=== PATIENT | female | born 1965 | race Caucasian/White ===

== ENCOUNTER 2016-09-04 14:19 | Emergency (ER) | payer OTHER ==
[2016-09-04 14:27] VITALS: BP 119/84
[2016-09-04] MEDS ORDERED: NAPROXEN 375 MG TABLET PO ONE (15:35)
--- NOTE | 2016-09-04 15:39 | ER Document Report ---
HPI - HPI Patient complains to provider of: chronic low back pain and anterior left hip pain Onset: Yesterday Onset/Duration: Gradual Quality of pain: Achy Pain Level: 4 Context: 51-year-old female complaining of exacerbation of her chronic intermittent low back pain. She also ran 2 days ago and developed left anterior hip pain while she ran which got worse yesterday. No saddle anesthesia or radiculopathy. No fever or chills. No IV drug use. Associated Symptoms: None Exacerbated by: Movement, Walking Relieved by: Denies Similar symptoms previously: Yes Recently seen / treated by doctor: No - ROS ROS below otherwise negative: Yes Systems Reviewed and Negative: Yes All other systems reviewed and negative - CARDIOVASCULAR Cardiovascular: DENIES: Chest pain - REPRODUCTIVE Reproductive: DENIES: : - DERM Skin Color: Normal Past Medical History - General Information source: Patient - Social History Smoking Status: Current Every Day Smoker Chew tobacco use (# tins/day): No Frequency of alcohol use: Occasional Drug Abuse: None Lives with: Family Family History: None Patient has suicidal ideation: No Patient has homicidal ideation: No - Past Medical History Cardiac Medical History: Reports: Hx Hypercholesterolemia, Hx Hypertension Neurological Medical History: Reports: Hx Cerebrovascular Accident - 2010 Endocrine Medical History: Reports: Hx Diabetes Mellitus Type 2 - border line Renal/ Medical History: Denies: Hx Peritoneal Dialysis Musculoskeltal Medical History: Reports Hx Arthritis - hips, back, knees Psychiatric Medical History: Reports: Hx Bipolar Disorder Past Surgical History: Reports: Hx Cholecystectomy, Hx Gynecologic Surgery - oopherectomy, Hx Orthopedic Surgery, Hx Tonsillectomy - 1983, Hx Tubal Ligation - Immunizations Immunizations up to date: No Hx Diphtheria, Pertussis, Tetanus Vaccination: No Vertical Provider Document - CONSTITUTIONAL Agree With Documented VS: Yes Exam Limitations: No Limitations - INFECTION CONTROL TRAVEL OUTSIDE OF THE [place] IN LAST 30 DAYS: No - HEENT HEENT: Normocephalic - NECK Neck: Supple - RESPIRATORY Respiratory: Breath Sounds Normal, No Respiratory Distress O2 Sat by Pulse Oximetry: 98 - CARDIOVASCULAR Cardiovascular: Regular Rate, Regular Rhythm - GI/ABDOMEN Gastrointestinal: Abdomen Soft, Abdomen Non-Tender - MUSCULOSKELETAL/EXTREMETIES Musculoskeletal/Extremeties: MAEW, FROM, Tender - anterior left thigh and thigh muscle anterior superior iliac spine insertion, no swelling or erythema - NEURO Level of Consciousness: Awake, Alert, Appropriate Motor/Sensory: No Motor Deficit, No Sensory Deficit Deep Tendon Reflexes: Absent - deepak patellar and ankle, unable to elicit, gait and strength are normal, sensation normal - DERM Integumentary: Warm, Dry, No Rash Course - Vital Signs Vital signs: Temp Pulse Resp BP Pulse Ox 98.6 F 93 18 119/84 98 09/04/16 14:26 09/04/16 14:26 09/04/16 14:26 09/04/16 14:26 09/04/16 14:26 Discharge - Discharge Clinical Impression: left groin muscle strain Low back pain Qualifiers: Chronicity: unspecified Back pain laterality: midline Sciatica presence: without sciatica Qualified Code(s): M54.5 - Low back pain Condition: Good Disposition: HOME, SELF-CARE Instructions: Low Back Pain ([facility]), Anti-Inflammatory Medication ([facility]), Muscle Strain ([facility]), Family Physicians / Practices, Warm Packs ([facility]) Additional Instructions: Warm compress Gentle stretching Naprosyn as anti-inflammatory medication Return to the emergency room any concerns Please complete the patient satisfaction survey if you get one, and return it.. If you do not receive a survey, then you can go to the [facility] website, [email or web address] and place your comments about your very good care. Thank you very much. It was a pleasure being your medical provider today. Prescriptions: Naproxen 500 mg PO BIDP PRN #30 tablet PRN Reason: Forms: Return to Work
== END 2016-09-04 15:44 | disposition home or self-care (01) ==
LOC: ER 14:19
DX: S39.011A Strain of muscle, fascia and tendon of abdomen, initial encounter (principal); M54.5 Low back pain; M25.552 Pain in left hip; G89.29 Other chronic pain; F17.200 Nicotine dependence, unspecified, uncomplicated; X58.XXXA Exposure to other specified factors, initial encounter
CPT/HCPCS: 99283; J3490

== ENCOUNTER 2016-09-10 14:37 | Emergency (ER) | payer OTHER ==
[2016-09-10] MEDS ORDERED: NORMAL SALINE 500 ML IV ONE (15:28)
[2016-09-10] MEDS ORDERED: KETOROLAC TROMETHAMINE INJ/PF 30 MG/1 ML SDV IV ONE (15:29)
[2016-09-10] MEDS ORDERED: ONDANSETRON HCL INJ/PF 4 MG/2 ML SDV IV ONE (15:29)
--- NOTE | 2016-09-10 15:47 | ER Document Report ---
ED Medical Screen (RME) - General Chief Complaint: Vomiting Stated Complaint: NAUSEA,VOMITING,BACK PAIN Notes: I briefly seen and evaluated this patient in my role as physician in triage. I have initiated orders based on this initial evaluation. Please see my colleague' s documentation for complete history, physical, management, diagnosis, and ultimate disposition. My brief evaluation: Patient presents stating that she started having vomiting and diarrhea yesterday. She says today she has low back pain. The patient indicates she is getting history of low back problems. She says she throws it out every once in a while. She reports that it is possible that she thrown out when she was vomiting but she does not know. She denies any fevers. No urinary frequency urgency dysuria or hematuria. On exam, patient is alert and oriented no acute distress vital signs are stable patient is afebrile nontoxic appearing. Abdomen soft and nontender. Patient has mild tenderness across the lumbar paravertebral region. Bowel sounds are present. Medical decision making: Will initiates symptomatically management of nausea and vomiting. Basic labs urine. TRAVEL OUTSIDE OF THE [place] IN LAST 30 DAYS: No - Related Data Allergies/Adverse Reactions: No Known Allergies Allergy (Verified 09/10/16 15:22) Past Medical History - Past Medical History Cardiac Medical History: Reports: Hx Hypercholesterolemia, Hx Hypertension Denies: Hx Congestive Heart Failure, Hx Coronary Artery Disease, Hx DVT, Hx Heart Attack Pulmonary Medical History: Denies: Hx Tuberculosis Neurological Medical History: Reports: Hx Cerebrovascular Accident - 2010 Endocrine Medical History: Reports: Hx Diabetes Mellitus Type 2 - border line Renal/ Medical History: Denies: Hx Peritoneal Dialysis Musculoskeltal Medical History: Reports Hx Arthritis - hips, back, knees Psychiatric Medical History: Reports: Hx Bipolar Disorder Past Surgical History: Reports: Hx Cholecystectomy, Hx Gynecologic Surgery - oopherectomy, Hx Orthopedic Surgery, Hx Tonsillectomy - 1983, Hx Tubal Ligation. Denies: Hx Pacemaker - Immunizations Immunizations up to date: No Hx Diphtheria, Pertussis, Tetanus Vaccination: No Physical Exam - Vital signs Vitals: Temp Pulse Resp BP Pulse Ox 98.8 F 97 18 130/93 H 100 09/10/16 14:42 09/10/16 14:42 09/10/16 14:42 09/10/16 14:42 09/10/16 14:42 Course - Vital Signs Vital signs: Temp Pulse Resp BP Pulse Ox 98.8 F 97 18 130/93 H 100 09/10/16 14:42 09/10/16 14:42 09/10/16 14:42 09/10/16 14:42 09/10/16 14:42
[2016-09-10 16:08] LABS: ABSOLUTE EOSINOPHILS # (AUTO) 0.1 10^3/uL (0.0-0.6); ABSOLUTE LYMPHOCYTES (AUTO) 2.8 10^3/uL (0.5-4.7); ABSOLUTE MONOCYTES (AUTO) 0.5 10^3/uL (0.1-1.4); ABSOLUTE NEUT (AUTO) 4.2 10^3/uL (1.7-8.2); BASOPHILS % (AUTO) 0.5 % (0-2); EOSINOPHILS % (AUTO) 0.7 % (0-6); HEMATOCRIT 40.1 % (36.0-47.0); HEMOGLOBIN 13.9 g/dL (12.0-15.5); HGB HCT DIFFERENCE 1.6; LYMPHOCYTES % (AUTO) 36.7 % (13-45); MEAN CORPUSCULAR HEMOGLOBIN 33.1 pg (27.0-33.4); MEAN CORPUSCULAR HGB CONC 34.7 g/dL (32.0-36.0); MEAN CORPUSCULAR VOLUME 95 fl (80-97); MONOCYTES % (AUTO) 6.1 % (3-13); RED BLOOD COUNT 4.21 10^6/uL (3.72-5.28); RED CELL DISTRIBUTION WIDTH 13.8 % (11.5-14.0); WHITE BLOOD COUNT 7.5 10^3/uL (4.0-10.5)
[2016-09-10 16:22] LABS: APPEARANCE,URINE CLOUDY; BILIRUBIN,URINE NEGATIVE (NEGATIVE); GLUCOSE, URINE >=500 mg/dL (NEGATIVE); KETONES,URINE NEGATIVE (NEGATIVE); LEUKOCYTE ESTERASE,URINE SMALL (NEGATIVE); NITRITE,URINE NEGATIVE (NEGATIVE); PROTEIN,URINE NEGATIVE (NEGATIVE); URINE SPECIFIC GRAVITY 1.012; UROBILINOGEN,URINE NEGATIVE mg/dL (<2.0)
[2016-09-10 16:26] LABS: ALANINE AMINOTRANSFERASE 57 U/L (9-52); ALBUMIN 4.4 g/dL (3.5-5.0); ALKALINE PHOSPHATASE 61 U/L (38-126); ANION GAP 14 (5-19); ASPARTATE AMINO TRANSFERASE 36 U/L (14-36); BILIRUBIN,DIRECT 0.3 mg/dL (0.0-0.4); BILIRUBIN,TOTAL 0.5 mg/dL (0.2-1.3); BLOOD UREA NITROGEN 14 mg/dL (7-20); CALCIUM 9.1 mg/dL (8.4-10.2); CARBON DIOXIDE 26 mmol/L (22-30); CHLORIDE 98 mmol/L (98-107); CREATININE RESULT 0.56 mg/dL (0.52-1.25); GLUCOSE 208 mg/dL (75-110); LIPASE 153.7 U/L (23-300); POTASSIUM 4.1 mmol/L (3.6-5.0); SODIUM 137.9 mmol/L (137-145); TOTAL PROTEIN 7.1 g/dL (6.3-8.2)
--- NOTE | 2016-09-10 17:43 | ER Document Report ---
ED General - General Chief Complaint: Vomiting Stated Complaint: NAUSEA,VOMITING,BACK PAIN Mode of Arrival: Ambulatory Information source: Patient Notes: 51-year-old female presents with complaints of 3 episodes of vomiting and 2 episodes of diarrhea. Patient denies any abdominal pain denies any fevers or chills TRAVEL OUTSIDE OF THE [place] IN LAST 30 DAYS: No - HPI Onset: Yesterday Onset/Duration: Sudden Quality of pain: No pain Severity: Mild Pain Level: Denies Associated symptoms: Diarrhea, Nausea, Vomiting Exacerbated by: Denies Relieved by: Denies Similar symptoms previously: No Recently seen / treated by doctor: No - Related Data Allergies/Adverse Reactions: No Known Allergies Allergy (Verified 09/10/16 15:22) Past Medical History - Social History Smoking Status: Never Smoker Cigarette use (# per day): No Chew tobacco use (# tins/day): No Smoking Education Provided: No Family History: None Patient has suicidal ideation: No Patient has homicidal ideation: No - Past Medical History Cardiac Medical History: Reports: Hx Hypercholesterolemia, Hx Hypertension Denies: Hx Congestive Heart Failure, Hx Coronary Artery Disease, Hx DVT, Hx Heart Attack Pulmonary Medical History: Denies: Hx Tuberculosis Neurological Medical History: Reports: Hx Cerebrovascular Accident - 2010 Endocrine Medical History: Reports: Hx Diabetes Mellitus Type 2 - border line Renal/ Medical History: Denies: Hx Peritoneal Dialysis Musculoskeltal Medical History: Reports Hx Arthritis - hips, back, knees Psychiatric Medical History: Reports: Hx Bipolar Disorder Past Surgical History: Reports: Hx Cholecystectomy, Hx Gynecologic Surgery - oopherectomy, Hx Orthopedic Surgery, Hx Tonsillectomy - 1983, Hx Tubal Ligation. Denies: Hx Pacemaker - Immunizations Immunizations up to date: No Hx Diphtheria, Pertussis, Tetanus Vaccination: No Review of Systems - Review of Systems Notes: REVIEW OF SYSTEMS: CONSTITUTIONAL : Denies fever, chills, or sweats. Denies recent illness. EENT: Denies eye, ear, throat, or mouth pain or symptoms. Denies nasal or sinus congestion or discharge. Denies throat, tongue, or mouth swelling or difficulty swallowing. CARDIOVASCULAR: Denies chest pain. Denies palpitations or racing or irregular heart beat. Denies ankle edema. RESPIRATORY: Denies cough, cold, or chest congestion. Denies shortness of breath, difficulty breathing, or wheezing. GASTROINTESTINAL: Admits to nausea vomiting diarrhea GENITOURINARY: Denies difficulty urinating, painful urination, burning, frequency, blood in urine, or discharge. FEMALE GENITOURINARY: Denies vaginal bleeding, heavy or abnormal periods, irregular periods. Denies vaginal discharge or odor. MUSCULOSKELETAL: Denies back or neck pain or stiffness. Denies joint pain or swelling. SKIN: Denies rash, lesions or sores. HEMATOLOGIC : Denies easy bruising or bleeding. LYMPHATIC: Denies swollen, enlarged glands. NEUROLOGICAL: Denies confusion or altered mental status. Denies passing out or loss of consciousness. Denies dizziness or lightheadedness. Denies headache. Denies weakness or paralysis or loss of use of either side. Denies problems with gait or speech. Denies sensory loss, numbness, or tingling. Denies seizures. PSYCHIATRIC: Denies anxiety or stress. Denies depression, suicidal ideation, or homicidal ideation. ALL OTHER SYSTEMS REVIEWED AND NEGATIVE. Dictation was performed using [employer] voice recognition software PHYSICAL EXAMINATION: GENERAL: Well-appearing, well-nourished and in no acute distress. HEAD: Atraumatic, normocephalic. EYES: Pupils equal round and reactive to light, extraocular movements intact, conjunctiva are normal. ENT: Nares patent, oropharynx clear without exudates. Moist mucous membranes. NECK: Normal range of motion, supple without lymphadenopathy LUNGS: Breath sounds clear to auscultation bilaterally and equal. No wheezes rales or rhonchi. HEART: Regular rate and rhythm without murmurs ABDOMEN: Soft, nontender, nondistended abdomen. No guarding, no rebound. No masses appreciated. Female : deferred Musculoskeletal: Normal range of motion, no pitting or edema. No cyanosis. NEUROLOGICAL: Cranial nerves grossly intact. Normal speech, normal gait. Normal sensory, motor exams PSYCH: Normal mood, normal affect. SKIN: Warm, Dry, normal turgor, no rashes or lesions noted. Physical Exam - Vital signs Vitals: Temp Pulse Resp BP Pulse Ox 98.8 F 97 18 130/93 H 100 09/10/16 14:42 09/10/16 14:42 09/10/16 14:42 09/10/16 14:42 09/10/16 14:42 Course - Re-evaluation Re-evalutation: 09/10/16 18:05 Patient looks extremely well is in no distress. Lab work notes mild hyperglycemia which is consistent with a history of diabetes. Patient otherwise is stable I believe patient has gastroenteritis 09/10/16 18:06 After performing a Medical Screening Examination, I estimate there is LOW risk for ACUTE APPENDICITIS, BOWEL OBSTRUCTION, ACUTE CHOLECYSTITIS, PERFORATED DIVERTICULITIS, INCARCERATED HERNIA, PANCREATITIS, PELVIC INFLAMMATORY DISEASE, PERFORATED ULCER, ECTOPIC , or TUBO-OVARIAN ABSCESS, thus I consider the discharge disposition reasonable. Also, there is no evidence or peritonitis , sepsis, or toxicity. I have reevaluated this patient multiple times and no significant life threatening changes are noted. The patient and I have discussed the diagnosis and risks, and we agree with discharging home with close follow-up with the understanding that symptoms and presentations can change. We also discussed returning to the Emergency Department immediately if new or worsening symptoms occur. We have discussed the symptoms which are most concerning (e.g., bloody stool, fever, changing or worsening pain, vomiting) that necessitate immediate return. - Vital Signs Vital signs: Temp Pulse Resp BP Pulse Ox 98.8 F 97 18 130/93 H 100 09/10/16 14:42 09/10/16 14:42 09/10/16 14:42 09/10/16 14:42 09/10/16 14:42 - Laboratory Result Diagrams: 09/10/16 15:50 09/10/16 15:50 Laboratory results interpreted by me: 09/10/16 09/10/16 15:50 15:50 Glucose 208 H ALT 57 H Urine Glucose (UA) >=500 H Urine Blood MODERATE H Ur Leukocyte Esterase SMALL H Discharge - Discharge Clinical Impression: Nausea vomiting and diarrhea, Hyperglycemia Condition: Stable Disposition: HOME, SELF-CARE Instructions: Diarrhea, Nonspecific ([facility]) Additional Instructions: Follow up with your physician tomorrow for further care or return to the ED IMMEDIATELY if symptoms worsen or new concerns occur. If you cannot afford to follow up with your primary care physician a list of low cost clinics have been provided at the end of your discharge papers as well. Prescriptions: Ondansetron [Zofran Odt 4 mg Tablet] 1 - 2 tab PO Q4H PRN #15 tab.rapdis PRN Reason: For Nausea/Vomiting Forms: Return to Work
[2016-09-10 19:09] VITALS: BP 140/90
== END 2016-09-10 19:09 | disposition home or self-care (01) ==
LOC: ER 14:37
DX: R11.2 Nausea with vomiting, unspecified (principal); R19.7 Diarrhea, unspecified; R73.9 Hyperglycemia, unspecified; M54.9 Dorsalgia, unspecified; E78.00 Pure hypercholesterolemia, unspecified; I10 Essential (primary) hypertension; R73.03 Prediabetes; Z86.73 Personal history of transient ischemic attack (TIA), and cerebral infarction without residual deficits; Z90.49 Acquired absence of other specified parts of digestive tract; Z98.51 Tubal ligation status; Z90.721 Acquired absence of ovaries, unilateral
CPT/HCPCS: 99283; 96361; 96374; 96375; 36415; 83690; 85025; 81025; 80053; 81001; J1885; J2405; J7040

== ENCOUNTER 2017-03-14 13:16 | Emergency (ER) | payer OTHER ==
[2017-03-14] MEDS ORDERED: ACETAMINOPHEN 325 MG TABLET PO ONE (15:31)
--- NOTE | 2017-03-14 15:37 | ER Document Report ---
ED General Pain - General Chief Complaint: Pain All Over Stated Complaint: BODY PAIN Time Seen by Provider: 03/14/17 15:18 Mode of Arrival: Ambulatory Information source: Patient TRAVEL OUTSIDE OF THE [place] IN LAST 30 DAYS: No - HPI Onset: Other - 2-3 days ago Onset/Duration: Gradual Quality of pain: Achy, Sharp, Throbbing Severity: Moderate Pain Level: 4 Context: General body pain Typical of prior episodes of painful crisis: No Exacerbated by: Movement, Walking, Coughing Relieved by: Denies Similar symptoms previously: Yes Recently seen / treated by doctor: No - Related Data Allergies/Adverse Reactions: No Known Allergies Allergy (Verified 03/14/17 13:43) Past Medical History - General Information source: Patient - Social History Smoking Status: Current Every Day Smoker Cigarette use (# per day): Yes - 1/2 -3/4 ppd Chew tobacco use (# tins/day): No Smoking Education Provided: Yes - less than 1 min Frequency of alcohol use: Social Drug Abuse: None Occupation: [employer] Lives with: Alone Family History: None, Arthritis, CAD, DM, Hyperlipidemia, Hypertension, Malignancy. denies: COPD, CVA, Thyroid Disfunction Patient has suicidal ideation: No Patient has homicidal ideation: No - Past Medical History Cardiac Medical History: Reports: Hx Hypertension Pulmonary Medical History: Reports: None EENT Medical History: Reports: None Neurological Medical History: Reports: Hx Cerebrovascular Accident - 2010 Endocrine Medical History: Reports: Hx Diabetes Mellitus Type 2 - border line Renal/ Medical History: Reports: Hx Ovarian Cysts, Other - ovarian torsion Malignancy Medical History: Reports: None GI Medical History: Reports: None Musculoskeltal Medical History: Reports Hx Arthritis - hips, back, knees, Reports Hx Musculoskeletal Deformity, Reports Hx Musculoskeletal Trauma Skin Medical History: Reports None Psychiatric Medical History: Reports: Hx Bipolar Disorder, Hx Depression Traumatic Medical History: Reports: None Infectious Medical History: Reports: None Past Surgical History: Reports: Hx Cholecystectomy, Hx Gynecologic Surgery - oopherectomy, Hx Orthopedic Surgery - feet, Hx Rectal Surgery, Hx Tonsillectomy - 1983, Hx Tubal Ligation - Immunizations Immunizations up to date: No Hx Diphtheria, Pertussis, Tetanus Vaccination: No Physical Exam - Vital signs Vitals: Temp Pulse Resp BP Pulse Ox 98.9 F 97 18 151/104 H 98 03/14/17 13:44 03/14/17 13:44 03/14/17 13:44 03/14/17 13:44 03/14/17 13:44 Course - Re-evaluation Re-evalutation: 03/14/17 17:10 Discussed x-rays with patient and written report given the patient. Patient was treated with ibuprofen and offered a sling for her shoulder pain. She also has signs and symptoms of upper respiratory infection which was discussed with her previously. As I was discussing discharge planning patient asked for what was going on with the urine. I asked her did she have any urinary symptoms that she had not discussed with me previously she said yes and that should given the nurse a urine sample. A urine and urine culture was ordered and I explained to patient that this is something she needed to let the provider know when she had a complaint. Urine was negative for any acute urinary tract infection culture has been sent and will be monitored. Patient was treated with the sling and instructed to use Tylenol elevation ice for the pain and to do shoulder exercises as instructed patient was instructed to follow-up with orthopedics. - Vital Signs Vital signs: Temp Pulse Resp BP Pulse Ox 98.9 F 97 18 151/104 H 98 03/14/17 13:44 03/14/17 13:44 03/14/17 14:50 03/14/17 13:44 03/14/17 13:44 - Laboratory Laboratory results interpreted by me: 03/14/17 14:29 Urine Protein 30 H Urine Glucose (UA) 50 H Urine Bilirubin SMALL H - Diagnostic Test Radiology reviewed: Image reviewed, Reports reviewed Procedures - Immobilization Right Shoulder Immobilizer type: Sling Performed by: PCT Post-Proc Neuro Vasc Exam: Normal Alignment checked and good: Yes Discharge - Discharge Clinical Impression: URI (upper respiratory infection) Qualifiers: URI type: unspecified URI Qualified Code(s): J06.9 - Acute upper respiratory infection, unspecified Right shoulder pain Qualifiers: Chronicity: unspecified Qualified Code(s): M25.511 - Pain in right shoulder Condition: Stable Disposition: HOME, SELF-CARE Instructions: Exercise Program for the Shoulder ([facility]) Additional Instructions: UPPER RESPIRATORY ILLNESS: You have a viral infection of the respiratory passages -- a "cold." This common infection causes nasal congestion, drainage, and often sore throat and cough. It is highly contagious. The disease usually lasts about 10 to 14 days. There is no "cure" for the viral infection -- it must run its course. If there is a complication, such as bacterial infection in the nose, sinuses, middle ear, or bronchial tubes, antibiotics may be required. The antibiotics won't affect the virus. Drink plenty of fluids. A humidifier may help. An expectorant medication or decongestant may make you more comfortable. Use acetaminophen or ibuprofen for fever or aches. See the doctor if fever persists over two days, if there is any significant worsening of your symptoms, or if you simply fail to improve as expected. COUGH-SUPPRESSANT & EXPECTORANT MEDICATION: You are to use a cough medication as needed for relief of symptoms. This medicine is a combination of an expectorant (to make the mucous thinner and more easily "coughed up") and a cough suppressant (to reduce the frequency of coughing). The cough-suppressant medicine is related to narcotics. You may experience mild nausea and sleepiness. Some patients who are very sensitive to narcotics may have stomach pain from this medicine. Taking the medicine with food reduces these side effects. Do not drive or work with machinery until you know how this medicine affects you. The expectorant should have no side effects. Iodine-containing expectorants (such as organidin) should not be taken by persons with active thyroid disease unless approved by your doctor. Call the doctor if you develop shortness of breath, hives, rash, itching, lightheadedness, or severe nausea and vomiting. You were also seen for right shoulder pain. Your x-ray does not show any acute injuries. Shoulder Injury You have injured your shoulder. This usually results from stretching or tearing of the tendons during trauma. Time and protection are required in order to heal properly. Many injuries are quite disabling, and should be taken seriously. Initial treatment includes cold packs and a sling to rest the shoulder. The physician has assessed the seriousness of your injury, and has outlined a treatment plan. Understand that this treatment may change, depending on how you progress. If a re-examination was recommended, it is important that you follow up as instructed. Some shoulder injuries (such as partial tear of the rotator cuff) are only suspected after you've failed to improve. Call us if there's severe pain, numbness, or loss of function. USE OF ACETAMINOPHEN (Tylenol): Acetaminophen may be taken for pain relief or fever control. It's much safer than aspirin, offering a wider range of "safe" dosages. It is safe during . Some brand names are Tylenol, Panadol, Datril, Anacin 3, Tempra, and Liquiprin. Acetaminophen can be repeated every four hours. The following are maximum recommended dosages: >89 pounds or adults 650 mg to 900 mg Acetaminophen can be repeated every four hours. Maximum dose not to exceed 4000 mg a day. SMOKING: If you smoke, you should stop smoking. The tar and chemicals in cigarette smoke are harmful. Smoking has been shown to cause: emphysema chronic bronchitis lung cancer mouth and throat cancer stomach and pancreas cancer premature aging defects In addition, smoking increases ear and lung infections in children of smokers. FOLLOW-UP CARE: If you have been referred to a physician for follow-up care, call the physician s office for an appointment as you were instructed or within the next two days. If you experience worsening or a significant change in your symptoms, notify the physician immediately or return to the Emergency Department at any time for re-evaluation. Forms: Elevated Blood Pressure, Smoking Cessation Education, Return to Work Referrals: MANNY LAM, [ACTIVE STAFF] - Follow up as needed
--- NOTE | 2017-03-14 16:08 | RADIOLOGY REPORT (SQ) ---
EXAM DESCRIPTION: SHOULDER RIGHT 2 OR MORE VIEWS COMPLETED DATE/TIME: 03/14/2017 4:01 pm REASON FOR STUDY: pain and injury COMPARISON: None. NUMBER OF VIEWS: Three views. TECHNIQUE: Internal rotation, external rotation, and Y view images acquired of the right shoulder. LIMITATIONS: None. FINDINGS: MINERALIZATION: Normal. BONES: No acute fracture or dislocation. No worrisome bone lesions. JOINTS: No dislocation. VISUALIZED LUNGS AND RIBS: No pneumothorax. No rib fracture. SOFT TISSUES: No radiopaque foreign body. OTHER: No other significant finding. IMPRESSION: NEGATIVE STUDY OF THE RIGHT SHOULDER. NO RADIOGRAPHIC EVIDENCE OF ACUTE INJURY. TECHNICAL DOCUMENTATION: JOB ID: [id number] [employer]- All Rights Reserved
[2017-03-14 17:48] LABS: AMORPHOUS SEDIMENT,URINE 1+ /HPF; APPEARANCE,URINE TURBID; BILIRUBIN,URINE SMALL (NEGATIVE); GLUCOSE, URINE 50 mg/dL (NEGATIVE); KETONES,URINE NEGATIVE (NEGATIVE); LEUKOCYTE ESTERASE,URINE NEGATIVE (NEGATIVE); NITRITE,URINE NEGATIVE (NEGATIVE); PROTEIN,URINE 30 mg/dL (NEGATIVE); URINE SPECIFIC GRAVITY 1.027; UROBILINOGEN,URINE NEGATIVE mg/dL (<2.0)
[2017-03-14 18:24] VITALS: BP 150/101
== END 2017-03-14 18:20 | disposition home or self-care (01) ==
LOC: ER 13:16
DX: J06.9 Acute upper respiratory infection, unspecified (principal); M79.1 Myalgia; F17.210 Nicotine dependence, cigarettes, uncomplicated; M25.511 Pain in right shoulder
CPT/HCPCS: 81001; 81025; 87086; 87088; 87186; 99283

== ENCOUNTER 2017-06-19 11:08 | Emergency (ER) | payer BC, OTHER ==
[2017-06-19 11:15] VITALS: BP 128/95
--- NOTE | 2017-06-19 11:42 | ER Document Report ---
ED Medical Screen (RME) - General Chief Complaint: Diarrhea Stated Complaint: DIARRHEA Time Seen by Provider: 06/19/17 11:40 Mode of Arrival: Ambulatory Information source: Patient Notes: This is a 51-year-old female who had 2 days of diarrhea and states that the diarrhea is getting improved. She was told by work that she needs a work statement to return. She denies any fever, nausea, vomiting, abdominal pain. She has been on her period. She denies any cassie blood in the stool. TRAVEL OUTSIDE OF THE [place] IN LAST 30 DAYS: No - HPI Onset: Last week Onset/Duration: Gradual Quality of pain: No pain Severity: None Pain Level: Denies Associated Symptoms: Diarrhea. denies: Shortness of breath, Vomiting Exacerbated by: Denies Relieved by: Denies Similar symptoms previously: Yes Recently seen / treated by doctor: No - Related Data Smoking: Non-smoker Frequency of alcohol use: None Drug Abuse: None Allergies/Adverse Reactions: No Known Allergies Allergy (Verified 06/19/17 11:09) Past Medical History - General Information source: Patient - Social History Cigarette use (# per day): No Chew tobacco use (# tins/day): No Frequency of alcohol use: Occasional Drug Abuse: None Lives with: Family Family history: None - Past Medical History Cardiac Medical History: Reports: Hx Hypercholesterolemia, Hx Hypertension Denies: Hx Congestive Heart Failure, Hx Heart Attack Pulmonary Medical History: Denies: Hx Tuberculosis Neurological Medical History: Reports: Hx Cerebrovascular Accident - 2010 Endocrine Medical History: Reports: Hx Diabetes Mellitus Type 2 - border line Renal/ Medical History: Reports: Hx Ovarian Cysts. Denies: Hx Peritoneal Dialysis Musculoskeltal Medical History: Reports Hx Arthritis - hips, back, knees, Reports Hx Musculoskeletal Deformity, Reports Hx Musculoskeletal Trauma Psychiatric Medical History: Reports: Hx Bipolar Disorder, Hx Depression Past Surgical History: Reports: Hx Cholecystectomy, Hx Gynecologic Surgery - oopherectomy, Hx Orthopedic Surgery - feet, Hx Rectal Surgery, Hx Tonsillectomy - 1983, Hx Tubal Ligation - Immunizations Immunizations up to date: No Hx Diphtheria, Pertussis, Tetanus Vaccination: No History of Influenza Vaccine for 02/2017 - 07/2017 Season: No Review of Systems - Review of Systems Constitutional: denies: Chills, Fever EENT: No symptoms reported Cardiovascular: No symptoms reported Respiratory: No symptoms reported Gastrointestinal: See HPI Genitourinary: No symptoms reported Female Genitourinary: No symptoms reported Musculoskeletal: No symptoms reported Skin: No symptoms reported Hematologic/Lymphatic: No symptoms reported Neurological/Psychological: No symptoms reported Physical Exam - Vital signs Vitals: Temp Pulse Resp BP Pulse Ox 98.4 F 83 18 128/95 H 98 06/19/17 11:15 06/19/17 11:15 06/19/17 11:15 06/19/17 11:15 06/19/17 11:15 Notes: Physical exam: GENERAL: 89-year-old female, alert and oriented 3, no acute distress HEAD: Atraumatic, normocephalic. EYES: Pupils equal round and reactive to light, extraocular movements intact, sclera anicteric, conjunctiva are normal. ENT: TMs normal, nares patent, oropharynx clear without exudates. Moist mucous membranes. NECK: Normal range of motion, supple without obvious mass or JVD. LUNGS: Breath sounds clear to auscultation bilaterally and equal. No wheezes rales or rhonchi. HEART: Regular rate and rhythm without murmurs, rubs or gallops. ABDOMEN: Soft, normoactive bowel sounds. No tenderness to palpation. No guarding, no rebound. No masses appreciated. EXTREMITIES: Normal range of motion, no pitting or edema. No clubbing or cyanosis. NEUROLOGICAL: Cranial nerves II through XII grossly intact. Normal speech, moving all extremities. PSYCH: Normal mood, normal affect. SKIN: Warm, Dry, normal turgor, no rashes or lesions noted. Course - Re-evaluation Re-evalutation: 06/19/17 11:42 I did recommend the patient should have an outpatient colonoscopy. She is aware this have a GI doctor (Dr. Isabel). She has no signs of infectious diarrhea at this time and can return to work. At the time of discharge, I have instructed the patient at the bedside with regards to return precautions and follow-up recommendations. The opportunity for questions was given. The patient has verbalized understanding of these instructions and the need for follow-up. - Vital Signs Vital signs: Temp Pulse Resp BP Pulse Ox 98.4 F 83 18 128/95 H 98 06/19/17 11:15 06/19/17 11:15 06/19/17 11:15 06/19/17 11:15 06/19/17 11:15 Doctor's Discharge - Discharge Clinical Impression: Diarrhea Condition: Stable Disposition: HOME, SELF-CARE Additional Instructions: You may return to work. Follow-up with your doctor in the next few days. Return to the emergency room for abdominal pain, fever, worsening diarrhea or any concerns or getting worse. Forms: Return to Work Referrals: PARISH TALAMANTES MD [Primary Care Provider] - Follow up as needed
== END 2017-06-19 11:45 | disposition home or self-care (01) ==
LOC: ER 11:08
DX: R19.7 Diarrhea, unspecified (principal); I10 Essential (primary) hypertension
CPT/HCPCS: 99284

== ENCOUNTER 2017-10-05 17:17 | Emergency (ER) | payer BC ==
--- NOTE | 2017-10-05 17:54 | RADIOLOGY REPORT (SQ) ---
EXAM DESCRIPTION: HIP LEFT AP/LATERAL COMPLETED DATE/TIME: 10/05/2017 5:42 pm REASON FOR STUDY: left hip pain COMPARISON: None. NUMBER OF VIEWS: Two views. TECHNIQUE: AP pelvis and additional frog-leg view of the left hip. LIMITATIONS: None. FINDINGS: MINERALIZATION: Normal. LEFT HIP: No fracture or dislocation. No worrisome bone lesions. RIGHT HIP: No fracture or dislocation. No worrisome bone lesions. PUBIS AND ISCHIUM: No fracture. PELVIS: No fracture. SACRUM: No fracture or dislocation. No worrisome bone lesions. LOWER LUMBAR SPINE: No fracture or dislocation. No worrisome bone lesions. No significant disc disea se. SOFT TISSUES: No findings. OTHER: No other significant finding. IMPRESSION: NEGATIVE STUDY OF THE LEFT HIP AND PELVIS. NO RADIOGRAPHIC EVIDENCE OF ACUTE INJURY. TECHNICAL DOCUMENTATION: JOB ID: [id number] [employer]- All Rights Reserved Reading location - IP/workstation name: [email or web address]
--- NOTE | 2017-10-05 18:11 | ER Document Report ---
ED Hip Pain/Injury - General Chief Complaint: Hip Pain Stated Complaint: LEFT HIP PAIN Time Seen by Provider: 10/05/17 17:44 Mode of Arrival: Ambulatory Information source: Patient TRAVEL OUTSIDE OF THE [place] IN LAST 30 DAYS: No - HPI Patient complains to provider of: Pain, Hip Notes: Patient is here with complaints of left hip pain. She states that she woke up with this pain this morning. She denies any traumatic injury. No fever. No redness or swelling. No numbness, tingling, weakness. No bowel or bladder dysfunction. No nausea, vomiting, diarrhea. No abdominal pain. She states that she has had this in the past and reports that she has degenerative joint disease and has received a steroid injection in this hip in the past. Pain is worse with walking and flexion of the hip, nothing seems to make it better. She is currently on a daily anti-inflammatory medication. No other complaints at this time. - Related Data Allergies/Adverse Reactions: No Known Allergies Allergy (Verified 06/19/17 11:09) Past Medical History - Social History Smoking Status: Current Every Day Smoker Frequency of alcohol use: Social Drug Abuse: None Family History: None, Arthritis, CAD, DM, Hyperlipidemia, Hypertension, Malignancy. denies: COPD, CVA, Thyroid Disfunction Patient has suicidal ideation: No Patient has homicidal ideation: No - Past Medical History Cardiac Medical History: Reports: Hx Hypercholesterolemia, Hx Hypertension Denies: Hx Congestive Heart Failure, Hx Heart Attack Pulmonary Medical History: Denies: Hx Tuberculosis Neurological Medical History: Reports: Hx Cerebrovascular Accident - 2010 Endocrine Medical History: Reports: Hx Diabetes Mellitus Type 2 - border line Renal/ Medical History: Reports: Hx Ovarian Cysts. Denies: Hx Peritoneal Dialysis Musculoskeltal Medical History: Reports Hx Arthritis - hips, back, knees, Reports Hx Musculoskeletal Deformity, Reports Hx Musculoskeletal Trauma Psychiatric Medical History: Reports: Hx Bipolar Disorder, Hx Depression Past Surgical History: Reports: Hx Cholecystectomy, Hx Gynecologic Surgery - oopherectomy, Hx Orthopedic Surgery - feet, Hx Rectal Surgery, Hx Tonsillectomy - 1983, Hx Tubal Ligation - Immunizations Immunizations up to date: No Hx Diphtheria, Pertussis, Tetanus Vaccination: No Review of Systems - Review of Systems -: Yes All other systems reviewed and negative Physical Exam - Vital signs Vitals: Temp Pulse Resp BP Pulse Ox 99.4 F 93 16 131/94 H 97 10/05/17 17:27 10/05/17 17:27 10/05/17 17:27 10/05/17 17:27 10/05/17 17:27 - Notes Notes: GENERAL: alert, cooperative, nontoxic, no distress. HEAD: normocephalic, atraumatic EYES: conjunctiva pink without discharge, no external redness or swelling. EARS: no external swelling, no external redness NOSE: atraumatic, no external swelling MOUTH/THROAT: mucous membranes moist and pink NECK: soft, supple, full range of motion, no meningismus. CHEST: no distress, lungs clear and equal throughout. No wheezing, rales, rhonchi. CARDIAC: regular rate and rhythm, no murmur, normal capillary refill, normal pulses. BACK: full range of motion, no CVA tenderness. EXTREMITIES: full range of motion of all extremities. No redness, no swelling. Tenderness to palpation of the left lateral/anterior hip. Full range of motion. No rash. Normal strength. Normal sensation distally. Normal cap refill. Normal pulse. Compartments are soft. NEURO: alert and oriented 3, no focal deficits, full range of motion of all extremities. PYSCH: appropriate mood, affect. Patient is cooperative. SKIN: pink, warm, dry, no rash. Course - Re-evaluation Re-evalutation: 10/05/17 18:08 Patient is here with complaints of left hip pain that started this morning when she woke up. She is nontoxic-appearing with stable vitals. She has had the same pain in the past and tells me that she has degenerative joint disease. She is already on an NSAID. She denies any recent falls or injuries. No fevers. X-ray show no acute fracture or acute abnormalities. Exam shows no signs of infection. Normal strength and sensation. Normal pulse. This is likely degenerative joint disease. She is already on an NSAID, I will discharge her home with a small supply of Ultram in an instructions to follow- up with your orthopedist at the next available appointment. Follow-up sooner for worsening pain, fever, numbness, tingling, weakness, any further concerns. The patient is noted to have elevated blood pressure during today's emergency department visit. The patient was informed of this finding. The patient was instructed that this may be related to pre-hypertension and requires further evaluation with a primary care provider. The patient has no hypertensive symptoms at this time. The patient's emergency department workup and current diagnosis were explained to the patient and or family. Follow-up instructions were provided. Medications if prescribed were discussed. Instructions for when to return to the emergency department including specific worrisome symptoms were discussed with the patient and/or family. - Vital Signs Vital signs: Temp Pulse Resp BP Pulse Ox 99.4 F 93 16 131/94 H 97 10/05/17 17:27 10/05/17 17:27 10/05/17 17:27 10/05/17 17:27 10/05/17 17:27 - Diagnostic Test Radiology reviewed: Image reviewed, Reports reviewed - Negative left hip Discharge - Discharge Clinical Impression: Left hip pain Condition: Stable Disposition: HOME, SELF-CARE Instructions: Osteoarthritis ([facility]) Additional Instructions: Take medication as prescribed. Continue taking anti-inflammatory medications. Rest, ice, elevate. Follow-up with your orthopedist at the next available appointment, sooner for worsening pain, fever, numbness, tingling, weakness, redness, any further concerns. Your blood pressure was elevated during today's visit. Have this rechecked with your doctor. The medication you were prescribed today may cause drowsiness. Do not drive or operate heavy machinery while taking this medication. Prescriptions: Tramadol HCl [Ultram 50 mg Tablet] 50 mg PO Q6HP PRN #9 tablet PRN Reason: Forms: Return to Work Referrals: NAILA SWARTZ PA-C [Primary Care Provider] - Follow up as needed
[2017-10-05 18:27] VITALS: BP 148/89
== END 2017-10-05 18:30 | disposition home or self-care (01) ==
LOC: ER 17:17
DX: M16.0 Bilateral primary osteoarthritis of hip (principal); M47.9 Spondylosis, unspecified; M17.0 Bilateral primary osteoarthritis of knee; Z79.1 Long term (current) use of non-steroidal anti-inflammatories (NSAID); M25.552 Pain in left hip; F17.200 Nicotine dependence, unspecified, uncomplicated; I10 Essential (primary) hypertension
CPT/HCPCS: 99283

== ENCOUNTER 2018-07-04 01:48 | Emergency (ER) | payer BC ==
[2018-07-04] MEDS ORDERED: MORPHINE SULFATE 10 MG/ML INJ IV ONE ×2 (02:45→03:56)
--- NOTE | 2018-07-04 03:57 | RADIOLOGY REPORT (SQ) ---
EXAM DESCRIPTION: CT HEAD WITHOUT IV CONTRAST COMPLETED DATE/TME: 07/04/2018 02:44 CLINICAL HISTORY: 52 years, Female, fall/trauma COMPARISON: Prior CT brain 06/24/2012. TECHNIQUE: 184 Images stored on PACS. All CT scanners at this facility use dose modulation, iterative reconstruction, and/or weight based dosing when appropriate to reduce radiation dose to as low as reasonably achievable (ALARA). [facility]: Dose Right [facility]: CareDose [facility]: Dose Right [facility]: Teradose 4D [facility]: [employer] LIMITATIONS: None. FINDINGS: The globes are intact. The paranasal sinuses and mastoid air cells are unremarkable. No displaced or depressed skull fracture. No intra or extra-axial hemorrhage. CT is limited for evaluation of acute infarct. No CT evidence for large or territorial acute infarct. No mass or midline shift. Minimal hypodensities in the periventricular and subcortical white matter likely reflecting minor small vessel ischemic change. IMPRESSION: Minor small vessel ischemic change. Negative for acute intracranial abnormality. TECHNICAL DOCUMENTATION: Quality ID # 436: Final reports with documentation of one or more dose reduction techniques (e.g., Automated exposure control, adjustment of the mA and/or kV according to patient size, use of iterative reconstruction technique) copyright 2010 [employer]- All Rights Reserved
--- NOTE | 2018-07-04 03:59 | RADIOLOGY REPORT (SQ) ---
EXAM DESCRIPTION: CT MAXILLOFACIAL WITHOUT IV CONTRAST COMPLETED DATE/TME: 07/04/2018 02:44 CLINICAL HISTORY: 52 years, Female, fall/trauma COMPARISON: None. TECHNIQUE: 214 Images stored on PACS. All CT scanners at this facility use dose modulation, iterative reconstruction, and/or weight based dosing when appropriate to reduce radiation dose to as low as reasonably achievable (ALARA). [facility]: Dose Right [facility]: CareDose [facility]: Dose Right [facility]: Teradose 4D [facility]: [employer] LIMITATIONS: None. FINDINGS: The globes are intact. Surrounding soft tissues show equivocal/minor soft tissue swelling associated with the nose. Minimal deformity of the anterior nasal bones, having a somewhat well-corticated appearance which could reflect old facial bone fracture. No other evidence for facial bone fracture. Poor dental condition with multiple dental caries. The paranasal sinuses are well aerated. IMPRESSION: Negative for acute facial bone fracture. Deformity of the nasal bones, likely sequelae of old trauma. TECHNICAL DOCUMENTATION: Quality ID # 436: Final reports with documentation of one or more dose reduction techniques (e.g., Automated exposure control, adjustment of the mA and/or kV according to patient size, use of iterative reconstruction technique) copyright 2010 [employer] [facility] [employer]- All Rights Reserved
--- NOTE | 2018-07-04 04:02 | RADIOLOGY REPORT (SQ) ---
EXAM DESCRIPTION: XR RIBS UNILATERAL WITH CHEST COMPLETED DATE/TME: 07/04/2018 02:43 CLINICAL HISTORY: 52 years, Female, rib pain COMPARISON: 02/28/2016 chest x-ray NUMBER OF VIEWS: 4 TECHNIQUE: Frontal view chest and 3 views left RIBS LIMITATIONS: None. FINDINGS: Heart size is normal. Subsegmental atelectasis right lung base. No pneumothorax. Lungs are otherwise clear. Minimally displaced fracture deformities of the posterior lateral left 10th, ninth, and eighth ribs. IMPRESSION: Subsegmental atelectasis right lung base. Minimally displaced fractures of the posterior lateral left eighth through 10th ribs copyright 2010 [employer] [facility] [employer]- All Rights Reserved
--- NOTE | 2018-07-04 04:15 | RADIOLOGY REPORT (SQ) ---
EXAM DESCRIPTION: CT CERVICAL SPINE WITHOUT IV CONTRAST COMPLETED DATE/TME: 07/04/2018 02:44 CLINICAL HISTORY: 52 years, Female, fall/trauma COMPARISON: None. TECHNIQUE: 238 Images stored on PACS. All CT scanners at this facility use dose modulation, iterative reconstruction, and/or weight based dosing when appropriate to reduce radiation dose to as low as reasonably achievable (ALARA). [facility]: Dose Right [facility]: CareDose [facility]: Dose Right [facility]: Teradose 4D [facility]: [employer] LIMITATIONS: None. FINDINGS: Evaluation of spinal canal contents limited due to CT technique. However, height and alignment is preserved. No CT evidence for fracture or subluxation. Degenerative changes with disc space narrowing, osteophytic spurring and facet arthropathy at multiple levels, greatest at C5-6 and C6-7. Prevertebral soft tissues are normal. IMPRESSION: No acute C-spine abnormality TECHNICAL DOCUMENTATION: Quality ID # 436: Final reports with documentation of one or more dose reduction techniques (e.g., Automated exposure control, adjustment of the mA and/or kV according to patient size, use of iterative reconstruction technique) copyright 2011 [employer]- All Rights Reserved
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
[2018-07-04 05:22] VITALS: BP 145/96
== END 2018-07-04 05:22 | disposition home or self-care (01) ==
LOC: ER 01:48
DX: S22.42XA Multiple fractures of ribs, left side, initial encounter for closed fracture (principal); S10.93XA Contusion of unspecified part of neck, initial encounter; W10.8XXA Fall (on) (from) other stairs and steps, initial encounter; Y92.009 Unspecified place in unspecified non-institutional (private) residence as the place of occurrence of the external cause; S00.11XA Contusion of right eyelid and periocular area, initial encounter; W22.03XA Walked into furniture, initial encounter; J98.11 Atelectasis; F17.200 Nicotine dependence, unspecified, uncomplicated; R06.02 Shortness of breath; I10 Essential (primary) hypertension
CPT/HCPCS: 96376; 99284; 96374; 71101; 70450; 70486; 72125; J2270

== ENCOUNTER 2018-11-08 11:40 | Emergency (ER) | payer SELFPAY ==
[2018-11-08 12:03] VITALS: BP 127/96
[2018-11-08] MEDS ORDERED: NEOMY SULF/POLYMYX B SULF/HC OTIC SUSP 10 ML AU ONE (12:25)
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
[2018-11-08] MEDS ORDERED: IBUPROFEN 800 MG TABLET PO ONE (12:35)
--- NOTE | 2018-11-08 13:27 | RADIOLOGY REPORT (SQ) ---
EXAM DESCRIPTION: RIBS LEFT W/PA CHEST COMPLETED DATE/TIME: 11/08/2018 1:16 pm REASON FOR STUDY: pain, hx fx COMPARISON: 07/04/2018 TECHNIQUE: Frontal view of the chest and additional views of the left ribs acquired. NUMBER OF VIEWS: Three views LIMITATIONS: None. FINDINGS: FRONTAL CXR: No pneumothorax. No pleural effusion. No atelectasis or infiltrates. RIBS: Healing anterior rib fractures on the left. No acute fracture. OTHER: No other significant finding. IMPRESSION: Healing anterior rib fractures on the left. No acute displaced rib fracture. COMMENT: SITE OF TRAUMA/COMPLAINT MARKED/STAMP COMPLETED: NO. TECHNICAL DOCUMENTATION: JOB ID: [id number] [employer]- All Rights Reserved Reading location - IP/workstation name: [email or web address]
== END 2018-11-08 14:03 | disposition home or self-care (01) ==
LOC: ER 11:40
DX: S22.42XD Multiple fractures of ribs, left side, subsequent encounter for fracture with routine healing (principal); W50.0XXD Accidental hit or strike by another person, subsequent encounter; F17.210 Nicotine dependence, cigarettes, uncomplicated; I10 Essential (primary) hypertension
CPT/HCPCS: 99283

== ENCOUNTER 2018-11-14 16:26 | Emergency (ER) | payer SELFPAY ==
[2018-11-14] MEDS ORDERED: ONDANSETRON 4 MG TAB.RAPDIS PO ONE (17:00)
[2018-11-14] MEDS ORDERED: KETOROLAC TROMETHAMINE INJ/PF 30 MG/1 ML SDV IM ONE (17:00)
--- NOTE | 2018-11-14 17:02 | ER Document Report ---
ED Medical Screen (RME) - General Chief Complaint: Flank Pain Stated Complaint: VOMITING/ABDOMINAL PAIN Time Seen by Provider: 11/14/18 16:57 TRAVEL OUTSIDE OF THE [place] IN LAST 30 DAYS: No - HPI Notes: 11/14/18 17:00 Patient is a 53-year-old female with known healing rib fractures on the left side who presents complaining of left flank pain, dark-colored urine, foul- smelling urine, nausea/vomiting that began today. Patient states that with previous UTIs she does not have any discomfort aside from the odor and the color changes. She still having normal bowel movements. Denies MERINO, fever, neck pain, URI, CP, SOB, or rash. I have treated and performed a rapid initial assessment of this patient. A comprehensive ED assessment and evaluation of the patient, analysis of test results and completion of medical decision making process will be conducted by additional ED providers. PHYSICAL EXAMINATION: GENERAL: Well-appearing, well-nourished and in no acute distress. A&Ox4. Answers questions appropriately. LUNGS: Breath sounds clear to auscultation bilaterally and equal. No wheezes rales or rhonchi. HEART: Regular rate and rhythm without murmurs, rubs, gallops. Extremities: No cyanosis, clubbing, or edema b/l. NEUROLOGICAL: Normal speech, normal gait. PSYCH: Normal mood, normal affect. - Related Data Allergies/Adverse Reactions: No Known Allergies Allergy (Verified 11/14/18 16:31) Past Medical History - Social History Family history: None - Past Medical History Cardiac Medical History: Reports: Hx Hypercholesterolemia, Hx Hypertension Denies: Hx Congestive Heart Failure, Hx Heart Attack Pulmonary Medical History: Denies: Hx Tuberculosis Neurological Medical History: Reports: Hx Cerebrovascular Accident - 2010 Endocrine Medical History: Reports: Hx Diabetes Mellitus Type 2 - border line Renal/ Medical History: Reports: Hx Ovarian Cysts. Denies: Hx Peritoneal Dialysis Musculoskeltal Medical History: Reports Hx Arthritis - hips, back, knees, Reports Hx Musculoskeletal Deformity, Reports Hx Musculoskeletal Trauma Psychiatric Medical History: Reports: Hx Bipolar Disorder, Hx Depression Past Surgical History: Reports: Hx Cholecystectomy, Hx Gynecologic Surgery - oopherectomy, Hx Orthopedic Surgery - feet, Hx Rectal Surgery, Hx Tonsillectomy - 1983, Hx Tubal Ligation - Immunizations Immunizations up to date: No Hx Diphtheria, Pertussis, Tetanus Vaccination: No History of Influenza Vaccine for 02/2017 - 07/2017 Season: No Physical Exam - Vital signs Vitals: Temp Pulse Resp BP Pulse Ox 98.7 F 105 H 18 116/83 94 11/14/18 16:34 11/14/18 16:34 11/14/18 16:34 11/14/18 16:34 11/14/18 16:34 Course - Vital Signs Vital signs: Temp Pulse Resp BP Pulse Ox 98.7 F 105 H 18 116/83 94 11/14/18 16:34 11/14/18 16:34 11/14/18 16:34 11/14/18 16:34 11/14/18 16:34
[2018-11-14 17:44] LABS: ABSOLUTE EOSINOPHILS # (AUTO) 0.1 10^3/uL (0.0-0.6); ABSOLUTE LYMPHOCYTES (AUTO) 2.9 10^3/uL (0.5-4.7); ABSOLUTE MONOCYTES (AUTO) 0.4 10^3/uL (0.1-1.4); ABSOLUTE NEUT (AUTO) 2.6 10^3/uL (1.7-8.2); BASOPHILS % (AUTO) 0.3 % (0-2); EOSINOPHILS % (AUTO) 0.9 % (0-6); HEMOGLOBIN 14.8 g/dL (12.0-15.5); LYMPHOCYTES % (AUTO) 48.5 % (13-45); MEAN CORPUSCULAR HEMOGLOBIN 33.6 pg (27.0-33.4); MEAN CORPUSCULAR HGB CONC 34.5 g/dL (32.0-36.0); MEAN CORPUSCULAR VOLUME 97 fl (80-97); MONOCYTES % (AUTO) 6.7 % (3-13); PLATELET COUNT 139 10^3/uL (150-450); RED BLOOD COUNT 4.42 10^6/uL (3.72-5.28); RED CELL DISTRIBUTION WIDTH 14.9 % (11.5-14.0); SEGMENTED NEUTROPHILS % (AUTO) 43.6 % (42-78); TOTAL CELLS COUNTED % (AUTO) 100 %; WHITE BLOOD COUNT 5.9 10^3/uL (4.0-10.5)
[2018-11-14 17:56] LABS: ALANINE AMINOTRANSFERASE 97 U/L (9-52); ALBUMIN 4.8 g/dL (3.5-5.0); ALKALINE PHOSPHATASE 79 U/L (38-126); ANION GAP 14 (5-19); ASPARTATE AMINO TRANSFERASE 141 U/L (14-36); BILIRUBIN,DIRECT 0.3 mg/dL (0.0-0.4); BILIRUBIN,TOTAL 0.5 mg/dL (0.2-1.3); BLOOD UREA NITROGEN 8 mg/dL (7-20); CALCIUM 8.6 mg/dL (8.4-10.2); CARBON DIOXIDE 26 mmol/L (22-30); CHLORIDE 99 mmol/L (98-107); GLUCOSE 184 mg/dL (75-110); LIPASE 225.8 U/L (23-300); POTASSIUM 3.9 mmol/L (3.6-5.0); SODIUM 139.1 mmol/L (137-145); TOTAL PROTEIN 7.7 g/dL (6.3-8.2)
[2018-11-14 18:35] LABS: APPEARANCE,URINE TURBID; BILIRUBIN,URINE NEGATIVE (NEGATIVE); COLOR,URINE AMBER; GLUCOSE, URINE 50 mg/dL (NEGATIVE); KETONES,URINE NEGATIVE (NEGATIVE); LEUKOCYTE ESTERASE,URINE TRACE (NEGATIVE); NITRITE,URINE POSITIVE (NEGATIVE); PROTEIN,URINE 30 mg/dL (NEGATIVE); URINE SPECIFIC GRAVITY 1.021
[2018-11-14] MEDS ORDERED: HYDROMORPHONE HCL INJ/PF 2 MG/ML AMPULE SUBCUT ONE (18:54)
[2018-11-14] MEDS ORDERED: CEFTRIAXONE 1 GM/D5W RTU 1 GM/50 ML RTUPB IV ONE (18:55)
--- NOTE | 2018-11-14 19:04 | ER Document Report ---
ED General - General Chief Complaint: Flank Pain Stated Complaint: VOMITING/ABDOMINAL PAIN Time Seen by Provider: 11/14/18 16:57 Mode of Arrival: Ambulatory Information source: Patient TRAVEL OUTSIDE OF THE [place] IN LAST 30 DAYS: No - HPI Patient complains to provider of: Left flank pain, dysuria, frequency of urination. Also left rib pain Onset: Last week - Urinary symptoms for the past couple of weeks. Left rib pain for months Onset/Duration: Constant Quality of pain: Sharp Severity: Severe Pain Level: 4 Associated symptoms: Nausea, Vomiting. denies: Chills, Diarrhea, Fever Exacerbated by: Denies Relieved by: Denies Similar symptoms previously: No Recently seen / treated by doctor: No Notes: 53-year-old female with chief complaint left side/flank pain with nausea and vomiting in foul-smelling urine and frequency and dysuria. Symptoms started couple weeks ago. Initially started on one antibiotic. Then was called and told she needed to start a different antibiotic. She completed that course and the symptoms came right back. She then took the antibiotics that she had originally been issued. Symptoms have persisted for the past few weeks. Also h aving pain in the left ribs. Reports broke ribs back in June. She was here last week and told that they were healing routinely and that there was no sign of pneumothorax. - Related Data Allergies/Adverse Reactions: No Known Allergies Allergy (Verified 11/14/18 16:31) Past Medical History - General Information source: Patient - Social History Smoking Status: Current Every Day Smoker Chew tobacco use (# tins/day): No Frequency of alcohol use: None Drug Abuse: None Family History: None, Arthritis, CAD, DM, Hyperlipidemia, Hypertension, Mal ignancy. denies: COPD, CVA, Thyroid Disfunction Patient has suicidal ideation: No Patient has homicidal ideation: No - Past Medical History Cardiac Medical History: Reports: Hx Hypercholesterolemia, Hx Hypertension Denies: Hx Congestive Heart Failure, Hx Heart Attack Pulmonary Medical History: Denies: Hx Tuberculosis Neurological Medical History: Reports: Hx Cerebrovascular Accident - 2010 Endocrine Medical History: Reports: Hx Diabetes Mellitus Type 2 - border line Renal/ Medical History: Reports: Hx Ovarian Cysts. Denies: Hx Peritoneal Dialysis Musculoskeletal Medical History: Reports Hx Arthritis - hips, back, knees, Reports Hx Musculoskeletal Deformity, Reports Hx Musculoskeletal Trauma Psychiatric Medical History: Reports: Hx Bipolar Disorder, Hx Depression Past Surgical History: Reports: Hx Cholecystectomy, Hx Gynecologic Surgery - oopherectomy, Hx Orthopedic Surgery - feet, Hx Rectal Surgery, Hx Tonsillectomy - 1984, Hx Tubal Ligation - Immunizations Immunizations up to date: No Hx Diphtheria, Pertussis, Tetanus Vaccination: No Review of Systems - Review of Systems Notes: Constitutional: No fevers. No chills. EENT: No eye redness. No eye pain. No ear pain. No sore throat. Cardiovascular: No chest pain. No palpitations. Respiratory: Positive left rib pain Gastrointestinal: Positive left flank pain with nausea and vomiting. Negative diarrhea Genitourinary: Atraumatic. No lesions. No pain. No discharge. Musculoskeletal: Atraumatic. No swelling. No deformities. Skin: No rash or lesions. Lymphatic: No swollen lymph nodes. Neurologic: No headache. No syncope. Psychiatric: No suicidal or homicidal ideation. Physical Exam - Vital signs Vitals: Temp Pulse Resp BP Pulse Ox 98.7 F 105 H 18 116/83 94 11/14/18 16:34 11/14/18 16:34 11/14/18 16:34 11/14/18 16:34 11/14/18 16:34 - Notes Notes: General: Well-developed, well-nourished. In no acute distress. Non-toxic appearing. Cardiac: Well-perfused. Regular rate and rhythm. No murmurs, rubs, or gallops. Pulmonary: No respiratory distress. No cyanosis. Bilateral lung fiels are clear to auscultation. Abdominal: Non-distended. Non-rigid. Bowels sounds are present in all four quadrants. No guarding or rebound. HEENT: Head is atraumatic. Conjunctivae not reddened. No tearing. PERRL. EOMI. Orbits atraumatic. No periorbital swelling or erythema. Oropharynx is without er ythema, swelling, or exudates. Neck: Supple. No adenopathy. No meningismus. Dermatologic: Warm with good turgor. No rash. Atraumatic. Chest: Left lower anterior chest wall tenderness. No crepitus Musculoskeletal: Moves all extremities well. No range of motion deficits. no muscular or joint tenderness. No paraspinal muscle tenderness. no midline spinal tenderness or step-off. Genitourinary: Examination deferred Neurologic: No gross neurologic deficits. Psychiatric: Normal mood. Course - Re-evaluation Re-evalutation: 11/14/18 19:05 Patient very evidently has a UTI. Clinically it may be trending towards pyelonephritis but patient is not febrile or having Rigors. According to the patient couple weeks ago she was seen here for the ribs and was told that the x- ray was fine. We will give her a gram of Rocephin for her UTI and send her home on Cefdinir. I will give her the information for the [facility] for follow-up with a urinary infection as well as the rib pain. - Vital Signs Vital signs: Temp Pulse Resp BP Pulse Ox 98.7 F 105 H 18 116/83 94 11/14/18 16:34 11/14/18 16:34 11/14/18 16:34 11/14/18 16:34 11/14/18 16:34 - Laboratory Result Diagrams: 11/14/18 17:19 11/14/18 17:19 Laboratory results interpreted by me: 11/14/18 11/14/18 11/14/18 17:19 17:19 17:29 MCH 33.6 H RDW 14.9 H Plt Count 139 L Lymphocytes % 48.5 H Glucose 184 H AST 141 H ALT 97 H Urine Protein 30 H Urine Glucose (UA) 50 H Urine Nitrite POSITIVE H Urine Urobilinogen 2.0 H Ur Leukocyte Esterase TRACE H Discharge - Discharge Clinical Impression: Chest wall pain, chronic, Tobacco use UTI (urinary tract infection) Qualifiers: Urinary tract infection type: site unspecified Hematuria presence: without hematuria Qualified Code(s): N39.0 - Urinary tract infection, site not specified Condition: Good Disposition: HOME, SELF-CARE Instructions: Urinary Tract Infection, Child ([facility]), Rib Injuries and Fractures ([facility]) Prescriptions: Hydrocodone/Acetaminophen [Dougherty 5-325 mg Tablet] 1 tab PO Q6HP PRN #10 tablet PRN Reason: Cefdinir [Omnicef 300 mg Capsule] 1 cap PO BID 10 Days #20 capsule Forms: Smoking Cessation Education Referrals: [facility] [Provider Group] - Follow up as needed
[2018-11-14] MEDS ORDERED: ONDANSETRON ODT 4 MG TAB (6 TAB/ER DISP) PO PRN (19:12)
[2018-11-14 20:16] VITALS: BP 114/78
== END 2018-11-14 20:16 | disposition home or self-care (01) ==
LOC: ER 16:26
DX: R07.89 Other chest pain (principal); N39.0 Urinary tract infection, site not specified; R10.9 Unspecified abdominal pain; R07.81 Pleurodynia; R11.2 Nausea with vomiting, unspecified; F17.200 Nicotine dependence, unspecified, uncomplicated; E78.00 Pure hypercholesterolemia, unspecified; I10 Essential (primary) hypertension; Z86.73 Personal history of transient ischemic attack (TIA), and cerebral infarction without residual deficits; Z98.51 Tubal ligation status
CPT/HCPCS: 99284; 96372; 96365; 36415; 87086; 83690; 85025; 80053; 81001; S0119; J1885; J1170; J0696

== ENCOUNTER 2018-12-05 08:55 | Emergency (ER) | payer SELFPAY ==
--- NOTE | 2018-12-05 09:11 | ER Document Report ---
HPI - HPI Time Seen by Provider: 12/05/18 09:10 Pain Level: 5 Notes: 53-year-old female presents the ED for evaluation of lower back sacral pain status post falling onto a hardwood floor while carrying a couch approximately 3 days ago. Denies any head trauma or change in level consciousness. Has not tried any [id number] medications, has not tried any heat or icing. Reports pain is 7 out of 10, throbbing achy. Has not had any bowel or bladder dysfunction, no saddle anesthesia. Reports she has thrown out her back in the past. Denies any hip pain. denies fevers, chills, chest pain,palpitations, shortness of breath, dyspnea, nausea, vomiting, diarrhea, abdominal pain, hematuria,LH, dizziness, syncope, headaches, neck pain, weakness, bowel or bladder dysfunction, saddle anesthesia, numbness or tingling in bilateral upper or lower extremities equally, muscle paralysis, weakness in bilateral upper or lower extremities equally or rash. - REPRODUCTIVE Reproductive: DENIES: : Past Medical History - General Information source: Patient - Social History Smoking Status: Unknown if Ever Smoked Family History: None, Arthritis, CAD, DM, Hyperlipidemia, Hypertension, Malignancy. denies: COPD, CVA, Thyroid Disfunction - Past Medical History Cardiac Medical History: Reports: Hx Hypercholesterolemia, Hx Hypertension Denies: Hx Congestive Heart Failure, Hx Heart Attack Pulmonary Medical History: Denies: Hx Tuberculosis Neurological Medical History: Reports: Hx Cerebrovascular Accident - 2010 Endocrine Medical History: Reports: Hx Diabetes Mellitus Type 2 - border line Renal/ Medical History: Reports: Hx Ovarian Cysts. Denies: Hx Peritoneal Dialysis Musculoskeletal Medical History: Reports Hx Arthritis - hips, back, knees, Reports Hx Musculoskeletal Deformity, Reports Hx Musculoskeletal Trauma Psychiatric Medical History: Reports: Hx Bipolar Disorder, Hx Depression Past Surgical History: Reports: Hx Cholecystectomy, Hx Gynecologic Surgery - oopherectomy, Hx Orthopedic Surgery - feet, Hx Rectal Surgery, Hx Tonsillectomy - 1983, Hx Tubal Ligation - Immunizations Immunizations up to date: No Hx Diphtheria, Pertussis, Tetanus Vaccination: No Vertical Provider Document - CONSTITUTIONAL Agree With Documented VS: Yes Notes: PHYSICAL EXAMINATION: GENERAL: Well-appearing, well-nourished and in no acute distress. HEAD: Atraumatic, normocephalic. EYES: Pupils equal round and reactive to light, extraocular movements intact, conjunctiva are normal. ENT: Nares patent, oropharynx clear without exudates. Moist mucous membranes. NECK: Normal range of motion, supple without lymphadenopathy LUNGS: Breath sounds clear to auscultation bilaterally and equal. No wheezes rales or rhonchi. HEART: Regular rate and rhythm without murmurs ABDOMEN: Soft, nontender, nondistended abdomen. No guarding, no rebound. No masses appreciated. Female : deferred Musculoskeletal: Normal range of motion, no pitting or edema. No cyanosis.Pain with flexion and extension at 45 degrees, negative straight test exam. Point tenderness between L3-S2. normal hip rotation bilaterally. DTR +2 in BLE equally. Strength 5 out of 5 both distally and proximally to bilateral lower extremities normal motor and sensory function in BLE equally. Distal pulses + 2 BLE equally. Noted paraspinal tenderness near L2 and L3. No spinal tenderness. No CVA tenderness bilaterally. Femoral pulses + 2 bilaterally and equally. No abrasions, scars, lacerations, ecchymosis of any recent trauma. normal gait. NEUROLOGICAL: Cranial nerves grossly intact. Normal speech, normal gait. Normal sensory, motor exams PSYCH: Normal mood, normal affect. SKIN: Warm, Dry, normal turgor, no rashes or lesions noted. - INFECTION CONTROL TRAVEL OUTSIDE OF THE [place] IN LAST 30 DAYS: No Course - Re-evaluation Re-evalutation: 12/05/18 09:59 No evidence of a septic joint, gout flare, dislocation, or fracture on exam and imaging. Vitals wnl. X-ray of sacrum shows a nondisplaced hip fracture, x-ray of lumbar spine negative per radiology. Patient does have point tenderness in sacral area at S2. Discussed with patient send her home with [employer], do not drive, drink or operate heavy machinery while taking medications discussed impairment of cognitive function and sedation. Patient will need to follow-up with system configuration specialist, referral given to Dr. Johnson, repeated specialist online marketing specialist, in 3 days for follow-up. After performing a Medical Screening Examination, I estimate there is LOW risk for EXPANDING OR RUPTURED ABDOMINAL AORTIC ANEURYSM, CAUDA EQUINA SYNDROME, EPIDURAL MASS ABSCESS OR LESION(S), OS TEOMYELITIS,PERSONAL HISTORY OF CANCER, IMMUNOSUPPERSSSION, HISTORY OF IV DRUG USE, FRACTURE, CORD COMPERSSION, CANCER, RETROPERITONEAL BLEED, SPINAL EPIDURAL HEMATOMA, or HERNIATED DISK CAUSING SEVERE SPINAL STENOSIS, thus I consider the discharge disposition reasonable. I have reevaluated this patient multiple times and no significant life threatening changes are noted. The patient and I have discussed the diagnosis and risks, and we agree with discharging home and close follow-up. We also discussed returning to the Emergency Department immediately if new or worsening symptoms occur with the understanding that symptoms and presentations can change. We have discussed the symptoms which are most concerning (e.g., saddle anesthesia, urinary or bowel incontinence or retention, changing or worsening pain) that necessitate immediate return. - Vital Signs Vital signs: Temp Pulse Resp BP Pulse Ox 98.0 F 95 18 132/89 H 97 12/05/18 08:59 12/05/18 08:59 12/05/18 08:59 12/05/18 08:59 12/05/18 08:59 Discharge - Discharge Clinical Impression: Lower back pain, Sacral pain, Sacral fracture, closed Condition: Stable Disposition: HOME, SELF-CARE Instructions: Low Back Pain ([facility]), Muscle Relaxers ([facility]), Muscle Strain ([facility]), Myalagia (Muscle Pain) ([facility]), Stretching Exercises for the Back ([facility]) Additional Instructions: Your x-ray does not show any acute fracture today. You likely have a ligamentous strain. You should continue to take anti-inflammatories such as ibuprofen 800 mg every [address], drink or operate heavy machinery while taking muscle relaxers that can cause sedation and impairment of cognitive function. continue to apply ice to the area is much your able. Please follow-up with your primary care physician if you do not have improving your symptoms in the next 1-2 weeks. Please return immediately if you develop weakness, numbness, spreading redness from the area, or any other symptoms that are concerning to you. Prescriptions: RX: Ibuprofen [Ibu] 800 mg PO Q6HP PRN #20 tablet PRN Reason: Methocarbamol [Robaxin 500 mg Tablet] 500 mg PO QID PRN #15 tablet PRN Reason: Forms: Return to Work Referrals: LIAT RICHMOND MD [COMMUNITY BASED STAFF] - Follow up in 3-5 days DORCAS JOHNSON MD [ACTIVE STAFF] - Follow up in 3-5 days
[2018-12-05] MEDS ORDERED: KETOROLAC TROMETHAMINE 60 MG/2 ML SDV IM ONE (09:36)
--- NOTE | 2018-12-05 11:23 | RADIOLOGY REPORT (SQ) ---
EXAM DESCRIPTION: SACRUM AND COCCYX COMPLETED DATE/TIME: 12/05/2018 10:42 am REASON FOR STUDY: fell backwards x 3 days ago, L2-S2 pain, COMPARISON: None. NUMBER OF VIEWS: Three views. TECHNIQUE: AP, lateral, and tilt views of the sacrum and coccyx. LIMITATIONS: None. FINDINGS: MINERALIZATION: Normal. BONES: There is a nondisplaced fracture of the coccyx. SOFT TISSUES: No soft tissue swelling. No foreign body. OTHER: No other significant finding. IMPRESSION: Nondisplaced coccygeal fracture. TECHNICAL DOCUMENTATION: JOB ID: [id number] SC-[id number] 2010 [employer]- All Rights Reserved Reading location - IP/workstation name: [email or web address]
--- NOTE | 2018-12-05 11:24 | RADIOLOGY REPORT (SQ) ---
EXAM DESCRIPTION: L SPINE WHOLE COMPLETED DATE/TIME: 12/05/2018 10:42 am REASON FOR STUDY: fell backwards x 3 days ago, L2-S2 pain, COMPARISON: None. NUMBER OF VIEWS: Five views including obliques. TECHNIQUE: AP, lateral, oblique, and sacral radiographic images acquired of the lumbar spine. LIMITATIONS: None. FINDINGS: There are 5 non rib-bearing lumbar type vertebra. Marginal osteophyte formation noted at multiple levels consistent lumbar spondylosis. No spondylolysis or spondylolisthesis. Vascular calc ification of abdominal aorta. The SI joints are symmetrical. IMPRESSION: Lumbar spondylosis. TECHNICAL DOCUMENTATION: JOB ID: [id number] SC-[id number] 2010 [employer]- All Rights Reserved Reading location - IP/workstation name: [email or web address]
[2018-12-05] MEDS ORDERED: HYDROCODONE/ACETAMINOPHEN 5-325 MG (6 TAB/ER DISP) PO PRN (11:28)
[2018-12-05 11:44] VITALS: BP 145/103
== END 2018-12-05 11:40 | disposition home or self-care (01) ==
LOC: ER 08:55
DX: S32.10XA Unspecified fracture of sacrum, initial encounter for closed fracture (principal); M54.5 Low back pain; M53.3 Sacrococcygeal disorders, not elsewhere classified; W18.30XA Fall on same level, unspecified, initial encounter; I10 Essential (primary) hypertension; E11.9 Type 2 diabetes mellitus without complications
CPT/HCPCS: 99283; 96372; 72220; 72110; J1885

== ENCOUNTER 2019-06-17 14:44 | Emergency (ER) | payer SELFPAY ==
[2019-06-17] MEDS ORDERED: ONDANSETRON HCL INJ/PF 4 MG/2 ML SDV IV ONE (15:22)
[2019-06-17] MEDS ORDERED: NORMAL SALINE 1000 ML 1,000 ML IV PRN (15:22)
--- NOTE | 2019-06-17 15:24 | ER Document Report ---
ED Medical Screen (RME) - General Chief Complaint: Nausea/Vomiting Stated Complaint: VOMITING Time Seen by Provider: 06/17/19 15:18 TRAVEL OUTSIDE OF THE [place] IN LAST 30 DAYS: No - HPI Notes: 06/17/19 15:22 Patient is a 53-year-old female with a history of hypertension who presents complaining of nausea and vomiting for the past 3 days that is left her fatigued. Patient states that she is able to drink water and is urinating routinely. Patient states that she does have a mixture of watery and loose stool. No new foods or medicines. Patient states that she has had a cough for a while, but seems it to be improving otherwise. No fever, chest pain, shortness of breath. No significant abdominal pain. I have treated and performed a rapid initial assessment of this patient. A comprehensive ED assessment and evaluation of the patient, analysis of test results and completion of medical decision making process will be conducted by additional ED providers. PHYSICAL EXAMINATION: GENERAL: Well-appearing, well-nourished and in no acute distress. A&Ox4. Answers questions appropriately. Abdomen: Limited exam in triage, but grossly nontender. Lungs: CTAB without retractions - Related Data Allergies/Adverse Reactions: No Known Allergies Allergy (Verified 12/05/18 08:56) Past Medical History - Social History Family history: None - Past Medical History Cardiac Medical History: Reports: Hx Hypercholesterolemia, Hx Hypertension Denies: Hx Congestive Heart Failure, Hx Heart Attack Pulmonary Medical History: Denies: Hx Tuberculosis Neurological Medical History: Reports: Hx Cerebrovascular Accident - 2010 Endocrine Medical History: Reports: Hx Diabetes Mellitus Type 2 - border line Renal/ Medical History: Reports: Hx Ovarian Cysts. Denies: Hx Peritoneal Dialysis Musculoskeltal Medical History: Reports Hx Arthritis - hips, back, knees, Reports Hx Musculoskeletal Deformity, Reports Hx Musculoskeletal Trauma Psychiatric Medical History: Reports: Hx Bipolar Disorder, Hx Depression Past Surgical History: Reports: Hx Cholecystectomy, Hx Gynecologic Surgery - oopherectomy, Hx Orthopedic Surgery - feet, Hx Rectal Surgery, Hx Tonsillectomy - 1983, Hx Tubal Ligation - Immunizations Immunizations up to date: No Hx Diphtheria, Pertussis, Tetanus Vaccination: No Physical Exam - Vital signs Vitals: Temp Pulse Resp BP Pulse Ox 99.5 F 111 H 18 163/108 H 98 06/17/19 14:48 06/17/19 14:48 06/17/19 14:48 06/17/19 14:48 06/17/19 14:48 Course - Vital Signs Vital signs: Temp Pulse Resp BP Pulse Ox 99.5 F 111 H 18 163/108 H 98 06/17/19 14:48 06/17/19 14:48 06/17/19 14:48 06/17/19 14:48 06/17/19 14:48
[2019-06-17 16:16] LABS: ABSOLUTE EOSINOPHILS # (AUTO) 0.1 10^3/uL (0.0-0.6); ABSOLUTE LYMPHOCYTES (AUTO) 1.8 10^3/uL (0.5-4.7); ABSOLUTE MONOCYTES (AUTO) 0.4 10^3/uL (0.1-1.4); ABSOLUTE NEUT (AUTO) 3.4 10^3/uL (1.7-8.2); BASOPHILS % (AUTO) 0.8 % (0-2); EOSINOPHILS % (AUTO) 1.2 % (0-6); HEMATOCRIT 43.3 % (36.0-47.0); HEMOGLOBIN 15.1 g/dL (12.0-15.5); MEAN CORPUSCULAR HEMOGLOBIN 33.5 pg (27.0-33.4); MEAN CORPUSCULAR HGB CONC 34.8 g/dL (32.0-36.0); MEAN CORPUSCULAR VOLUME 96 fl (80-97); MONOCYTES % (AUTO) 7.7 % (3-13); PLATELET COUNT 194 10^3/uL (150-450); RED CELL DISTRIBUTION WIDTH 14.1 % (11.5-14.0); SEGMENTED NEUTROPHILS % (AUTO) 58.3 % (42-78); TOTAL CELLS COUNTED % (AUTO) 100 %; WHITE BLOOD COUNT 5.8 10^3/uL (4.0-10.5)
[2019-06-17 16:52] LABS: AMORPHOUS SEDIMENT,URINE TRACE /HPF; APPEARANCE,URINE CLOUDY; BILIRUBIN,URINE NEGATIVE (NEGATIVE); COLOR,URINE YELLOW; GLUCOSE, URINE >=500 mg/dL (NEGATIVE); KETONES,URINE NEGATIVE (NEGATIVE); PROTEIN,URINE NEGATIVE (NEGATIVE); URINE SPECIFIC GRAVITY 1.007; UROBILINOGEN,URINE NEGATIVE mg/dL (<2.0)
[2019-06-17 17:19] LABS: ALBUMIN 4.9 g/dL (3.5-5.0); ALKALINE PHOSPHATASE 61 U/L (38-126); ANION GAP 10 (5-19); ASPARTATE AMINO TRANSFERASE 35 U/L (14-36); BILIRUBIN,TOTAL 0.7 mg/dL (0.2-1.3); BLOOD UREA NITROGEN 9 mg/dL (7-20); CALCIUM 10.8 mg/dL (8.4-10.2); CARBON DIOXIDE 25 mmol/L (22-30); CHLORIDE 101 mmol/L (98-107); GLUCOSE 157 mg/dL (75-110); POTASSIUM 4.6 mmol/L (3.6-5.0); TOTAL PROTEIN 8.1 g/dL (6.3-8.2)
--- NOTE | 2019-06-17 17:32 | ER Document Report ---
ED General - General Chief Complaint: Nausea/Vomiting Stated Complaint: VOMITING Time Seen by Provider: 06/17/19 15:18 Primary Care Provider: [facility] [Provider Group] - Follow up in 3-5 days REY JAVED MD [COMMUNITY BASED STAFF] - Follow up in 3-5 days Notes: 53 y/o female presents for nausea/vomiting for 3 days. Pt states she initially had mild abdominal pain but denies any now. Pt denies any fever, chills, urinary symptoms, diarrhea, constipation, chest pain, or dyspnea. Pt states her nausea/vomiting has resolved with Zofran given to her out in triage. Pt states she "needs a work note." Pt initially complained of cough but this is chronic in nature. Triage PA ordered CXR however pt refused. TRAVEL OUTSIDE OF THE [place] IN LAST 30 DAYS: No - Related Data Allergies/Adverse Reactions: No Known Allergies Allergy (Verified 12/05/18 08:56) Past Medical History - Social History Smoking Status: Unknown if Ever Smoked Family History: None, Arthritis, CAD, DM, Hyperlipidemia, Hypertension, Malignancy. denies: COPD, CVA, Thyroid Disfunction Patient has suicidal ideation: No Patient has homicidal ideation: No - Past Medical History Cardiac Medical History: Reports: Hx Hypercholesterolemia, Hx Hypertension Denies: Hx Congestive Heart Failure, Hx Heart Attack Pulmonary Medical History: Denies: Hx Tuberculosis Neurological Medical History: Reports: Hx Cerebrovascular Accident - 2010 Endocrine Medical History: Reports: Hx Diabetes Mellitus Type 2 - border line Renal/ Medical History: Reports: Hx Ovarian Cysts. Denies: Hx Peritoneal Lisa lysis Musculoskeletal Medical History: Reports Hx Arthritis - hips, back, knees, Reports Hx Musculoskeletal Deformity, Reports Hx Musculoskeletal Trauma Psychiatric Medical History: Reports: Hx Bipolar Disorder, Hx Depression Past Surgical History: Reports: Hx Cholecystectomy, Hx Gynecologic Surgery - oopherectomy, Hx Orthopedic Surgery - feet, Hx Rectal Surgery, Hx Tonsillectomy - 1983, Hx Tubal Ligation - Immunizations Immunizations up to date: No Hx Diphtheria, Pertussis, Tetanus Vaccination: No Review of Systems - Review of Systems Notes: Constitutional: Negative for fever. HENT: Negative for sore throat. Eyes: Negative for visual changes. Cardiovascular: Negative for chest pain. Respiratory: Negative for shortness of breath. Gastrointestinal: Positive for abdominal pain, vomiting. Negative for diarrhea. Genitourinary: Negative for dysuria. Musculoskeletal: Negative for back pain. Skin: Negative for rash. Neurological: Negative for headaches, weakness or numbness. 10 point ROS negative except as marked above and in HPI. Physical Exam - Vital signs Vitals: Temp Pulse Resp BP Pulse Ox 99.5 F 111 H 18 163/108 H 98 06/17/19 14:48 06/17/19 14:48 06/17/19 14:48 06/17/19 14:48 06/17/19 14:48 - Notes Notes: GENERAL: Well-appearing, well-nourished and in no acute distress. HEAD: Atraumatic, normocephalic. EYES: Extraocular movements intact, sclera anicteric, conjunctiva are normal. NECK: Normal range of motion, supple without lymphadenopathy or JVD. LUNGS: Breath sounds clear to auscultation bilaterally and equal. No wheezes rales or rhonchi. HEART: Regular rate and rhythm without murmurs, rubs or gallops. ABDOMEN: Soft, nontender. No guarding, no rebound. No masses appreciated. EXTREMITIES: Normal range of motion, no pitting or edema. No clubbing or cyanosis. NEUROLOGICAL: Cranial nerves II through XII grossly intact. Normal speech, normal gait. PSYCH: Normal mood, normal affect. SKIN: Warm, Dry, normal turgor, no rashes or lesions noted. Course - Re-evaluation Re-evalutation: 06/17/19 Nontoxic, well appearing 53 y/o female presents for nausea/vomiting for 3 days that has now resolved. Pt states she initially had abdominal pain but this has resolved. Pt states her nausea/vomiting has improved with zofran which was given to her in triage. Pt also had CXR ordered initially due to complaint of cough but pt refused this, stating that it is chronic. Pt is PO tolerant. Abd soft, nontender. PE is otherwise unremarkable. Labwork is reassuring. Pt given p rescription for zofran and strict return precautions. Referral given pt to PCP. Pt voices understanding and agrees with plan of care. - Vital Signs Vital signs: Temp Pulse Resp BP Pulse Ox 99.5 F 111 H 18 163/108 H 98 06/17/19 14:48 06/17/19 14:48 06/17/19 14:48 06/17/19 14:48 06/17/19 14:48 - Laboratory Result Diagrams: 06/17/19 15:52 06/17/19 16:39 Laboratory results interpreted by me: 06/17/19 06/17/19 06/17/19 15:52 16:30 16:39 MCH 33.5 H RDW 14.1 H Sodium 136.1 L Creatinine 0.46 L Glucose 157 H Calcium 10.8 H Urine Glucose (UA) >=500 H Leukocyte Esterase Rfl TRACE H Discharge - Discharge Clinical Impression: Nausea & vomiting Qualifiers: Vomiting type: unspecified Vomiting Intractability: unspecified Qualified Code(s): R11.2 - Nausea with vomiting, unspecified Disposition: HOME, SELF-CARE Instructions: Antinausea Medication ([facility]) Additional Instructions: Your lab work was reassuring today. You are offered a chest x-ray but you refused. Please take Zofran as prescribed for nausea/vomiting. Please follow- up with your primary care doctor or 1 of the clinics listed in 3 to 5 days. Return to ER for any worsening symptoms, including vomiting not controlled by medication, abdominal pain, chest pain, shortness of breath, diarrhea, constipation, fever, or any other symptoms that are concerning to you. Prescriptions: Ondansetron [Zofran Odt 4 mg Tablet] 4 mg PO Q4HP PRN #30 tab.rapdis PRN Reason: Forms: Return to Work Referrals: REY JAVED MD [COMMUNITY BASED STAFF] - Follow up in 3-5 days [facility] [Provider Group] - Follow up in 3-5 days
[2019-06-17 17:52] VITALS: BP 160/112
== END 2019-06-17 17:53 | disposition home or self-care (01) ==
LOC: ER 14:44
DX: R11.2 Nausea with vomiting, unspecified (principal); R05 Cough; I10 Essential (primary) hypertension; R10.9 Unspecified abdominal pain
CPT/HCPCS: 99283; 36415; 83690; 85025; 80053; 81001; J2405; J7030

== ENCOUNTER 2020-01-29 12:15 | Emergency (ER) | payer SELFPAY ==
--- NOTE | 2020-01-29 14:19 | ER Document Report ---
HPI - HPI Time Seen by Provider: 01/29/20 14:08 Pain Level: 4 Notes: 54-year-old female presents to the emergency room for complaints of bilateral foot pain over the last 4 to 5 years but reports pain is become worse, states she missed work yesterday and today related to pain. Patient states that when she was younger she had both of her bunions done on both feet. Was advised to follow-up with a events traffic controller but did not have insurance so she never followed up years ago. Denies any new trauma, injury, reason for increased pain. Tried [id number] Aleve without full relief. When asked today what brought her to the emergency room she said the pain was so severe. Denies any other area of injury. Patient is requesting a work note for today and tomorrow. Denies fevers, chills, chest pain,palpitations, shortness of breath, dyspnea, nausea, vomiting, diarrhea, abdominal pain, hematuria,blurred vision, double vision, loss of vision, speech changes, LH, dizziness, syncope, headaches, wheezing, ST, URI, neck pain, weakness, bowel or bladder dysfunction, saddle anesthesia, numbness or tingling in bilateral upper or lower extremities equally, muscle paralysis, weakness in bilateral upper or lower extremities equally or rash. Denies IV drug use. MEDICATIONS: I agree with the patient medications as charted by the RN. ALLERGIES: I agree with the allergies as charted by the RN. PAST MEDICAL HISTORY/PAST SURGICAL HISTORY: Reviewed and agree as charted by RN. SOCIAL HISTORY: Reviewed and agree as charted by RN. FAMILY HISTORY: No significant familial comorbid conditions directly related to patient complaint EXAM: Reviewed vital signs as charted by RN. REVIEW OF SYSTEMS:reviewed vital signs by RN CONSTITUTIONAL : Denies fever, chills, or sweats. Denies recent illness. EENT: Denies eye, ear, throat, or mouth pain or symptoms. Denies nasal or sinus congestion or discharge. Denies throat, tongue, or mouth swelling or difficulty swallowing. CARDIOVASCULAR: Denies chest pain. Denies palpitations or racing or irregular heart beat. Denies ankle edema. RESPIRATORY: Denies cough, cold, or chest congestion. Denies shortness of breath, difficulty breathing, or wheezing. GASTROINTESTINAL: Denies abdominal pain or distention. Denies nausea, vomiting, or diarrhea. Denies blood in vomitus, stools, or per rectum. Denies black, tarry stools. Denies constipation. GENITOURINARY: Denies difficulty urinating, painful urination, burning, frequency, blood in urine, or discharge. FEMALE GENITOURINARY: Denies vaginal bleeding, heavy or abnormal periods, irregular periods. Denies vaginal discharge or odor. MUSCULOSKELETAL: Reports bilateral foot pain. denies back or neck pain or stiffness. Denies joint pain or swelling. SKIN: Denies rash, lesions or sores. HEMATOLOGIC : Denies easy bruising or bleeding. LYMPHATIC: Denies swollen, enlarged glands. NEUROLOGICAL: Denies confusion or altered mental status. Denies passing out or loss of consciousness. Denies dizziness or lightheadedness. Denies headache. Denies weakness or paralysis or loss of use of either side. Denies problems with gait or speech. Denies sensory loss, numbness, or tingling. Denies seizures. PSYCHIATRIC: Denies anxiety or stress. Denies depression, suicidal ideation, or homicidal ideation. ALL OTHER SYSTEMS REVIEWED AND NEGATIVE. PHYSICAL EXAMINATION: GENERAL: Well-appearing, well-nourished and in no acute distress. HEAD: Atraumatic, normocephalic. EYES: Pupils equal round and reactive to light, extraocular movements intact, conjunctiva are normal. ENT: Nares patent, oropharynx clear without exudates. Moist mucous membranes. NECK: Normal range of motion, supple without lymphadenopathy LUNGS: Breath sounds clear to auscultation bilaterally and equal. No wheezes rales or rhonchi. HEART: Regular rate and rhythm without murmurs ABDOMEN: Soft, nontender, nondistended abdomen. No guarding, no rebound. No masses appreciated. Female : deferred Musculoskeletal: Normal range of motion, no pitting or edema. No cyanosis. bilateral foot with STS and tenderness on 1st metatarsal bones with palpation. Unable to palpate a step-off. No open lesions. squeeze test negative. dtr +2 BLE. Limited APROM. distal pulses + 2 in BUE. full motor and sensory function. No vascular compromise. Ankle exam within normal limits. No noted lacerations, lesions, ulcers or break in the skin. NEUROLOGICAL: Cranial nerves grossly intact. Normal speech, normal gait. Normal sensory, motor exams PSYCH: Normal mood, normal affect. SKIN: Warm, Dry, normal turgor, no rashes or lesions noted. Dictation was performed using [employer] voice recognition software - CONSTITUTIONAL Constitutional: DENIES: Fever, Chills - REPRODUCTIVE Reproductive: DENIES: : Past Medical History - General Information source: Patient - Social History Smoking Status: Current Every Day Smoker Frequency of alcohol use: Occasional Drug Abuse: None Family History: None, Arthritis, CAD, DM, Hyperlipidemia, Hypertension, Malignancy. denies: COPD, CVA, Thyroid Disfunction Patient has homicidal ideation: No - Past Medical History Cardiac Medical History: Reports: Hx Hypercholesterolemia, Hx Hypertension Denies: Hx Congestive Heart Failure, Hx Heart Attack Pulmonary Medical History: Denies: Hx Tuberculosis Neurological Medical History: Reports: Hx Cerebrovascular Accident - 2010 Endocrine Medical History: Reports: Hx Diabetes Mellitus Type 2 - border line Renal/ Medical History: Reports: Hx Ovarian Cysts. Denies: Hx Peritoneal Dialysis Musculoskeletal Medical History: Reports Hx Arthritis - hips, back, knees, Reports Hx Musculoskeletal Deformity, Reports Hx Musculoskeletal Trauma Psychiatric Medical History: Reports: Hx Bipolar Disorder, Hx Depression Past Surgical History: Reports: Hx Cholecystectomy, Hx Gynecologic Surgery - oopherectomy, Hx Orthopedic Surgery - feet, Hx Rectal Surgery, Hx Tonsillectomy - 1984, Hx Tubal Ligation - Immunizations Immunizations up to date: No Hx Diphtheria, Pertussis, Tetanus Vaccination: No Vertical Provider Document - CONSTITUTIONAL Agree With Documented VS: Yes Exam Limitations: No Limitations General Appearance: WD/WN - INFECTION CONTROL TRAVEL OUTSIDE OF THE [place] IN LAST 30 DAYS: No Course - Re-evaluation Re-evalutation: 01/29/20 14:18 Afebrile vital stable no distress. Nurses notes reviewed. X-ray of bilateral feet negative for any acute fracture dislocation or foreign body. Discussed with patient that she does need to follow-up with a events traffic controller, also discussed proper foot wear and inserts to help support her feet. Discussed taking anti- inflammatories, etc. Work note given for today. Discussed that she will need to follow-up with a events traffic controller in the next 24 to 48 hours for further evaluation. No acute finding seen on x-ray, this does appear to be an acute on chronic feet pain related to poor foot wear. After performing a Medical Screening Examination, I estimate there is LOW risk for OPEN FRACTURE, COMPARTMENT SYNDROME, DEEP VENOUS THROMBOSIS, ACUTE TENDON RUPTURE, or NEUROVASCULAR INJURY thus I consider the discharge disposition reasonable. I have reevaluated this patient multiple times and no significant life threatening changes are noted. The patient and I have discussed the diagnosis and risks, and we agree with discharging home to closely follow-up with their primary doctor or the referral orthopedist with the understanding that symptoms and presentations can change. We also discussed returning to the Emergency Department immediately if new or worsening symptoms occur. We have discussed the symptoms which are most concerning (e.g., changing or worsening pain, numbness, weakness) that necessitate immediate return - Vital Signs Vital signs: Temp Pulse Resp BP Pulse Ox 98.5 F 105 H 16 124/62 99 01/29/20 14:09 01/29/20 12:41 01/29/20 12:41 01/29/20 12:41 01/29/20 12:41 Discharge - Discharge Clinical Impression: acute on chronic bilateral foot pain Condition: Stable Disposition: HOME, SELF-CARE Instructions: Exercises for the Foot Muscles ([facility]) Additional Instructions: Tendon Strain You have strained a tendon. "Strain" means stretching and partial tearing of the fibers of the tendon. This often occurs with strenuous exertion, or during an injury that suddenly stretches the tendon. The seriousness of a strain varies. Some strains heal within days, others cause problems for months. X-rays don't show a tendon strain. X-rays are taken only if symptoms suggest that a fracture could be present. The usual treatment of a tendon strain is rest and ice packs. Sometimes a sling, splint, or crutches may be necessary to rest the tendon. The area can be used again once pain subsides. Severe strains require a special exercise and stretching program to prevent permanent stiffness and disability. Your doctor will advise you if this will be necessary. Call the doctor immediately if pain or swelling becomes severe, or if numbness or discoloration develop. Prescriptions: Meloxicam [Mobic] 7.5 mg PO DAILY #7 tablet Forms: Return to Work Referrals: DONALD WALLACE MD [ACTIVE STAFF] - Follow up as needed VINCENT STEEL DPM [ACTIVE STAFF] - Follow up tomorrow
[2020-01-29] MEDS ORDERED: IBUPROFEN 800 MG TABLET PO ONE (14:20)
[2020-01-29] MEDS ORDERED: IBUPROFEN 800 MG TABLET ONE (14:21)
--- NOTE | 2020-01-29 14:48 | RADIOLOGY REPORT (SQ) ---
EXAM DESCRIPTION: FOOT BILATERAL 2 VIEWS IMAGES COMPLETED DATE/TIME: 01/29/2020 2:38 pm REASON FOR STUDY: bilateral foot pain x3 years, pain severe today COMPARISON: None. NUMBER OF VIEWS: Two views. TECHNIQUE: AP and lateral without weight bearing radiographic images acquired of the right and left foot. LIMITATIONS: None. FINDINGS: RIGHT FOOT: MINERALIZATION: Normal. BONES: No acute fracture or dislocation. Mild irregularity of the distal 1st metatarsal, possibly po stoperative. Mild hallux valgus and bunion deformity. No worrisome bone lesions. Plantar calcaneal spur. JOINTS: No erosions. No soo-articular osteopenia. No chondrocalcinosis. SOFT TISSUES: No swelling. No calcifications. OTHER: No other significant finding. LEFT FOOT: MINERALIZATION: Normal. BONES: No acute fracture or dislocation. Mild hallux valgus and bunion deformity. No worrisome bone lesions. No significant osteophytes. JOINTS: No erosions. No soo-articular osteopenia. No chondrocalcinosis. SOFT TISSUES: No swelling. No calcifications. OTHER: No other significant finding. IMPRESSION: CHRONIC CHANGES DESCRIBED. NO ACUTE FINDINGS. TECHNICAL DOCUMENTATION: JOB ID: [id number] 2010 [employer]- All Rights Reserved Reading location - IP/workstation name: [email or web address]
[2020-01-29 15:59] VITALS: BP 174/104
== END 2020-01-29 15:57 | disposition home or self-care (01) ==
LOC: ER 12:15
DX: M79.671 Pain in right foot (principal); M79.672 Pain in left foot; G89.29 Other chronic pain; F17.200 Nicotine dependence, unspecified, uncomplicated; I10 Essential (primary) hypertension
CPT/HCPCS: 99283

== ENCOUNTER 2020-06-08 09:57 | Emergency (ER) | payer SELFPAY ==
[2020-06-08] MEDS ORDERED: NORMAL SALINE 1000 ML 1,000 ML IV ONE (12:13)
[2020-06-08] MEDS ORDERED: KETOROLAC TROMETHAMINE INJ/PF 30 MG/1 ML SDV IV ONE (12:14)
[2020-06-08] MEDS ORDERED: CEFTRIAXONE 2 GM/D5W RTU 2 GM/50 ML RTUPB IV ONE (12:14)
--- NOTE | 2020-06-08 12:56 | RADIOLOGY REPORT (SQ) ---
EXAM DESCRIPTION: CHEST SINGLE VIEW IMAGES COMPLETED DATE/TIME: 06/08/2020 12:31 pm REASON FOR STUDY: chills/n/v/d/covid exposure COMPARISON: None. EXAM PARAMETERS: NUMBER OF VIEWS: One view. TECHNIQUE: Single frontal radiographic view of the chest acquired. RADIATION DOSE: NA LIMITATIONS: None. FINDINGS: LUNGS AND PLEURA: No opacities, masses or pneumothorax. No pleural effusion. MEDIASTINUM AND HILAR STRUCTURES: No masses. Contour normal. HEART AND VASCULAR STRUCTURES: Heart normal in size. Normal vasculature. BONES: No acute findings. HARDWARE: None in the chest. OTHER: No other significant finding. IMPRESSION: NO ACUTE RADIOGRAPHIC FINDING IN THE CHEST. TECHNICAL DOCUMENTATION: JOB ID: [id number] 2010 [employer]- All Rights Reserved Reading location - IP/workstation name: [email or web address]
[2020-06-08 13:08] LABS: ABSOLUTE EOSINOPHILS # (AUTO) 0.1 10^3/uL (0.0-0.6); ABSOLUTE LYMPHOCYTES (AUTO) 2.9 10^3/uL (0.5-4.7); ABSOLUTE MONOCYTES (AUTO) 0.8 10^3/uL (0.1-1.4); ABSOLUTE NEUT (AUTO) 8.7 10^3/uL (1.7-8.2); BASOPHILS % (AUTO) 0.3 % (0-2); EOSINOPHILS % (AUTO) 0.5 % (0-6); HEMATOCRIT 43.1 % (36.0-47.0); HEMOGLOBIN 14.8 g/dL (12.0-15.5); LYMPHOCYTES % (AUTO) 23.4 % (13-45); MEAN CORPUSCULAR HEMOGLOBIN 33.2 pg (27.0-33.4); MEAN CORPUSCULAR HGB CONC 34.4 g/dL (32.0-36.0); MEAN CORPUSCULAR VOLUME 97 fl (80-97); MONOCYTES % (AUTO) 6.2 % (3-13); PLATELET COUNT 250 10^3/uL (150-450); RED BLOOD COUNT 4.46 10^6/uL (3.72-5.28); SEGMENTED NEUTROPHILS % (AUTO) 69.6 % (42-78); TOTAL CELLS COUNTED % (AUTO) 100 %; WHITE BLOOD COUNT 12.5 10^3/uL (4.0-10.5)
[2020-06-08 13:21] LABS: ALBUMIN 4.8 g/dL (3.5-5.0); ALKALINE PHOSPHATASE 71 U/L (38-126); ANION GAP 9 (5-19); ASPARTATE AMINO TRANSFERASE 30 U/L (14-36); BILIRUBIN,DIRECT 0.2 mg/dL (0.0-0.4); BILIRUBIN,TOTAL 0.7 mg/dL (0.2-1.3); BLOOD UREA NITROGEN 6 mg/dL (7-20); CALCIUM 9.8 mg/dL (8.4-10.2); CARBON DIOXIDE 24 mmol/L (22-30); CHLORIDE 103 mmol/L (98-107); GLUCOSE 127 mg/dL (75-110); POTASSIUM 4.1 mmol/L (3.6-5.0); TOTAL PROTEIN 7.8 g/dL (6.3-8.2)
--- NOTE | 2020-06-08 14:56 | ER Document Report ---
Entered by ALEXANDER WILSON SCRIBE 06/08/20 1206 Acting as scribe for:ZHANG HARRIS MD ED Oral Problem - General Chief Complaint: Toothache Stated Complaint: NAUSEA VOMITTING TOOTH PAIN Mode of Arrival: Ambulatory Information source: Patient Notes: This 54 year old female patient presents to the ED today with complaints of left lower dental pain that started yesterday. Pain radiates to her jaw. Patient states that she has had contact with her neighbor who is COVID positive. She also reports nausea/vomiting/diarrhea, abdominal cramping, and chills. Denies fever, sore throat, or cough. TRAVEL OUTSIDE OF THE [place] IN LAST 30 DAYS: No - Related Data Allergies/Adverse Reactions: No Known Allergies Allergy (Verified 06/08/20 11:44) Home Medications: denies Past Medical History - General Information source: Patient, [facility] Records - Social History Smoking Status: Current Every Day Smoker Chew tobacco use (# tins/day): No Smoking Education Provided: No Frequency of alcohol use: Occasional Drug Abuse: None Family History: Arthritis, CAD, DM, Hyperlipidemia, Hypertension, Malignancy Patient has homicidal ideation: No - Past Medical History Cardiac Medical History: Reports: Hx Hypercholesterolemia, Hx Hypertension Neurological Medical History: Reports: Hx Cerebrovascular Accident - 2010 Endocrine Medical History: Reports: Hx Diabetes Mellitus Type 2 - border line Renal/ Medical History: Reports: Hx Ovarian Cysts Musculoskeletal Medical History: Reports Hx Arthritis - hips, back, knees, Reports Hx Musculoskeletal Deformity, Reports Hx Musculoskeletal Trauma Psychiatric Medical History: Reports: Hx Bipolar Disorder, Hx Depression Past Surgical History: Reports: Hx Cholecystectomy, Hx Gynecologic Surgery - LT oopherectomy, Hx Orthopedic Surgery - feet, Hx Rectal Surgery, Hx Tonsillectomy - 1983, Hx Tubal Ligation - Immunizations Immunizations up to date: No Hx Diphtheria, Pertussis, Tetanus Vaccination: No Review of Systems - Review of Systems Constitutional: See HPI, Chills. denies: Fever EENT: See HPI, Dental problem Cardiovascular: No symptoms reported Respiratory: See HPI. denies: Cough Gastrointestinal: Abdominal pain, Diarrhea, Nausea, Vomiting Genitourinary: No symptoms reported Female Genitourinary: No symptoms reported Musculoskeletal: No symptoms reported Skin: No symptoms reported Hematologic/Lymphatic: No symptoms reported Neurological/Psychological: No symptoms reported -: Yes All other systems reviewed and negative Physical Exam - Vital signs Vitals: Temp Pulse Resp BP Pulse Ox 98.4 F 110 H 16 132/92 H 100 06/08/20 10:08 06/08/20 10:08 06/08/20 10:08 06/08/20 10:08 06/08/20 10:08 - General General appearance: Appears well, Alert In distress: None - HEENT Head: Normocephalic, Atraumatic Eyes: Normal Extraocular movements intact: Yes Pupils: PERRL Sinus: Frontal, Maxillary, Tenderness - mild Mouth/Lips: Caries - Left lower jaw at the 1st and 2nd molar with associated soft tissue gingival swelling Neck: Supple, Other - Tenderness to palpation of lymph nodes on the left side. No: Lymphadenopathy - Respiratory Respiratory status: No respiratory distress Chest status: Nontender Breath sounds: Normal Chest palpation: Normal - Cardiovascular Rhythm: Regular Heart sounds: Normal auscultation Murmur: No - Abdominal Inspection: Normal Distension: No distension Bowel sounds: Normal Tenderness: Nontender - Abdomen soft Organomegaly: No organomegaly - Back Back: Normal, Nontender - Extremities General upper extremity: Normal inspection General lower extremity: Normal inspection. No: Edema - Neurological Neuro grossly intact: Yes Orientation: AAOx4 Marcellus Coma Scale Eye Opening: Spontaneous Marcellus Coma Scale Verbal: Oriented Marcellus Coma Scale Motor: Obeys Commands Marcellus Coma Scale Total: 15 - Psychological Associated symptoms: Normal affect, Normal mood - Skin Skin Temperature: Warm Skin Moisture: Dry Skin Color: Normal Course - Re-evaluation Re-evalutation: 06/08/20 14:49 Patient is resting comfortably not less pain at this time. Explained to patient that she is COVID-19 negative and that she is being discharged home at this time. Recommend that she follow-up with dentist. - Vital Signs Vital signs: Temp Pulse Resp BP Pulse Ox 98.4 F 110 H 16 132/92 H 100 06/08/20 10:08 06/08/20 10:08 06/08/20 10:08 06/08/20 10:08 06/08/20 10:08 06/08/20 14:50 Vital signs stable blood pressure is 143/81 and a heart rate of 86 at this time. - Laboratory Results Result Diagrams: 06/08/20 12:35 06/08/20 12:35 Laboratory Results Interpreted: 06/08/20 06/08/20 12:35 12:35 WBC 12.5 H Absolute Neuts (auto) 8.7 H Sodium 136.3 L BUN 6 L Glucose 127 H Chest X-Ray 06/08/20 12:10 IMPRESSION: NO ACUTE RADIOGRAPHIC FINDING IN THE CHEST. No acute radiographic finding in the chest. White blood cell count 12.5 otherwise glucose of 127. Patient has no critical lab value and no critical radiology reports. Critical Laboratory Results Reviewed: No Critical Results - Radiology Results Radiology Results Interpreted: 06/08/20 14:46 Chest X-Ray 06/08/20 12:10 IMPRESSION: NO ACUTE RADIOGRAPHIC FINDING IN THE CHEST. Critical Radiology Results Reviewed: No Critical Results Discharge - Discharge Clinical Impression: Carious teeth, Suspected COVID-19 virus infection, Nausea vomiting and diarrhea Condition: Stable Disposition: HOME, SELF-CARE Instructions: Antinausea Medication ([facility]), Toothache ([facility]), [facility] Prescriptions: Amoxicillin 875 mg PO BID #20 tablet Ibuprofen [Ibu] 600 mg PO TID PRN #21 tablet PRN Reason: Pain Scale Of 3 Ondansetron [Zofran Odt 4 mg Tablet] 1 - 2 tab PO Q4H PRN #15 tab.rapdis PRN Reason: For Nausea/Vomiting Forms: Return to Work I personally performed the services described in the documentation, reviewed and edited the documentation which was dictated to the scribe in my presence, and it accurately records my words and actions.
[2020-06-08 15:22] VITALS: BP 145/85
== END 2020-06-08 15:22 | disposition home or self-care (01) ==
LOC: ER 09:57
DX: K02.9 Dental caries, unspecified (principal); R11.2 Nausea with vomiting, unspecified; R19.7 Diarrhea, unspecified; F17.200 Nicotine dependence, unspecified, uncomplicated; Z20.822 Contact with and (suspected) exposure to COVID-19; E78.00 Pure hypercholesterolemia, unspecified; I10 Essential (primary) hypertension; E11.9 Type 2 diabetes mellitus without complications
CPT/HCPCS: 99284; 96361; 96375; 96365; 36415; 85025; 0202U ×23; 80053; 71045; J1885; J7030; J0696